=== PATIENT | female | born 1935 | race Caucasian/White ===

== ENCOUNTER 2016-10-05 19:57 | Inpatient (IN) | payer MEDICARE ==
[~2016-10-05] VITALS: Ht 152.4 cm; Wt 75.3 kg
[~2016-10-05 19:57] MED LIST: AMIO200T PO; AMLO10TA2 PO; ATEN100T PO; CEFD300C2 PO; CHOL20002 PO; CIPR500T3 PO; CLOP75TA PO; FURO20TA3 PO; HYDR-3241 PO; HYDR-3342 PO; HYDR100T25 PO; HYDR1TAB12 PO; LACT10SO28 PO; LEVO500T33 PO; LOVA20TA2 PO; METO-99 PO; METO25TA35 PO; MULT-658 PO; PANT40TA3 PO; POTA20TA6 PO; PRED10TA PO; RIVA15TA PO; RIVA20TA PO; TERA2CAP3 PO; [UNRECOGNIZED DRUG - OTHER]
[2016-10-05 21:10] LABS: HEMOGLOBIN 15.8 g/dL (11.7-16.4)
[2016-10-05 21:19] LABS: ASPARTATE AMINO TRANSFERASE 29 U/L (15-37); BLOOD UREA NITROGEN 20 mg/dL (7-18)
[2016-10-06] MEDS ORDERED: ONDANSETRON 2MG/ML, 2ML IVP PRN (00:30)
[2016-10-06] MEDS ORDERED: POLYETHYLENE GLYCOL 17 GM PACKET PO PRN (00:30)
[2016-10-06] MEDS ORDERED: ACETAMINOPHEN 325 MG TABLET PO PRN (00:30)
[2016-10-06] MEDS ORDERED: TEMPLATE NON-FORMULARY MED. (Lovastatin** 20 MG) PO SCH (00:30)
[2016-10-06] MEDS ORDERED: CEFTRIAXONE PMX 1GM/50ML 50 ML ONE (02:28)
[2016-10-06] MEDS: SODIUM CHLORIDE 0.9% 1,000 ML IV SCH ×2 (02:52→12:53)
[2016-10-06] MEDS: CEFTRIAXONE PMX 1GM/50ML 50 ML IV SCH (02:53)
[2016-10-06 05:34] LABS: HEMOGLOBIN 15.5 g/dL (11.7-16.4)
[2016-10-06 05:43] LABS: ASPARTATE AMINO TRANSFERASE 31 U/L (15-37); BLOOD UREA NITROGEN 19 mg/dL (7-18)
[2016-10-06] MEDS: CHOLECALCIFEROL 1,000 UNIT TABLET PO SCH (09:00)
[2016-10-06] MEDS: MULTIVITAMIN 1 TABLET PO SCH (09:00)
[2016-10-06] MEDS: FUROSEMIDE 20 MG TABLET PO SCH (09:00)
[2016-10-06] MEDS: AMLODIPINE 2.5 MG TABLET PO SCH (09:00)
[2016-10-06] MEDS: METOPROLOL TARTRATE 100 MG TABLET PO SCH (09:00)
[2016-10-06] MEDS ORDERED: POTASSIUM CHLORIDE 20 MEQ TAB.ER.PRT ONE ×2 (09:37→09:57)
[2016-10-06] MEDS: POTASSIUM CHLORIDE 20 MEQ TAB.ER.PRT PO SCH ×2 (09:51→10:00)
[2016-10-06 12:19] VITALS: BP 119/74
[2016-10-06 19:12] VITALS: BP 115/70
[2016-10-06] MEDS ORDERED: LOVASTATIN 40 MG TABLET PO SCH (21:00)
[2016-10-07] MEDS: CEFTRIAXONE PMX 1GM/50ML 50 ML IV SCH (01:17)
[2016-10-07 01:30] VITALS: BP 112/80
[2016-10-07 05:50] LABS: HEMOGLOBIN 15.5 g/dL (11.7-16.4)
[2016-10-07 08:00] VITALS: BP 138/87
[2016-10-07] MEDS ORDERED: POTASSIUM CHLORIDE 20 MEQ TAB.ER.PRT PO SCH (09:00)
[2016-10-07] MEDS ORDERED: SULF1TAB24 PO (09:14)
[2016-10-07] MEDS: CHOLECALCIFEROL 1,000 UNIT TABLET PO SCH (09:48)
[2016-10-07] MEDS: FUROSEMIDE 20 MG TABLET PO SCH (09:48)
[2016-10-07] MEDS: MULTIVITAMIN 1 TABLET PO SCH (09:48)
[2016-10-07] MEDS: AMLODIPINE 2.5 MG TABLET PO SCH (09:48)
[2016-10-07] MEDS: METOPROLOL TARTRATE 100 MG TABLET PO SCH (09:49)
== END 2016-10-07 11:40 | disposition home or self-care (01) | DRG 378 ==
LOC: ED 23:00 → EDIP 23:50 → 3NE 10-06 11:53 → DCLOUNGE 10-07 11:26
PROVIDERS: ATTEND Family Medicine
DX: K92.1 Melena (principal); N39.0 Urinary tract infection, site not specified; D68.69 Other thrombophilia; I38 Endocarditis, valve unspecified; D68.32 Hemorrhagic disorder due to extrinsic circulating anticoagulants; N18.3 Chronic kidney disease, stage 3 (moderate); J44.9 Chronic obstructive pulmonary disease, unspecified; Z66 Do not resuscitate; I12.9 Hypertensive chronic kidney disease with stage 1 through stage 4 chronic kidney disease, or unspecified chronic kidney disease; K80.20 Calculus of gallbladder without cholecystitis without obstruction; E78.5 Hyperlipidemia, unspecified; G89.29 Other chronic pain; I27.2 Other secondary pulmonary hypertension; M54.9 Dorsalgia, unspecified; I48.2 Chronic atrial fibrillation; K21.9 Gastro-esophageal reflux disease without esophagitis; Z79.01 Long term (current) use of anticoagulants; Z86.79 Personal history of other diseases of the circulatory system; Z87.891 Personal history of nicotine dependence; Z88.8 Allergy status to other drugs, medicaments and biological substances; T45.515A Adverse effect of anticoagulants, initial encounter
CPT/HCPCS: 36415; 80053; 81001; 85025; 85610; 85730; 87040; 87086; J0696; J7030

== ENCOUNTER 2016-11-24 12:08 | Inpatient (IN) | payer MEDICARE ==
[~2016-11-24] VITALS: Ht 154.9 cm; Wt 71.1 kg
[~2016-11-24 12:08] MED LIST changes: -CEFD300C2 PO; +CEFD300C37 PO; +SULF1TAB24 PO
[2016-11-24] MEDS ORDERED: SODIUM CHLORIDE 0.9% 1,000ML IVBOLUS ONE ×2 (12:30→15:00)
[2016-11-24 13:11] LABS: ASPARTATE AMINO TRANSFERASE 57 U/L (15-37); BLOOD UREA NITROGEN 20 mg/dL (7-18)
[2016-11-24 13:19] LABS: IS PT STATUS REG ER OR PRE ER? YES
[2016-11-24] MEDS ORDERED: CEFTRIAXONE PMX 1GM/50ML 50 ML ONE (14:47)
[2016-11-24] MEDS ORDERED: CEFTRIAXONE PMX 1GM/50ML 50 ML IV ONE (15:00)
[2016-11-24] MEDS: SODIUM CHLORIDE 0.9% 1,000 ML IV SCH ×2 (15:06→22:29)
[2016-11-24] MEDS ORDERED: ACETAMINOPHEN 325 MG TABLET PO PRN (15:30)
[2016-11-24] MEDS ORDERED: ONDANSETRON 2MG/ML, 2ML IVP PRN (15:30)
[2016-11-24 18:30] VITALS: BP 99/62
[2016-11-24] MEDS: LOVASTATIN 40 MG TABLET PO SCH (21:00)
[2016-11-24] MEDS: METOPROLOL TARTRATE 100 MG TABLET PO SCH (21:00)
[2016-11-24] MEDS: RIVAROXABAN 15 MG TABLET PO SCH (22:16)
[2016-11-25 01:07] VITALS: BP 105/72
[2016-11-25 04:40] LABS: BLOOD UREA NITROGEN 15 mg/dL (7-18)
[2016-11-25 05:26] VITALS: BP 132/93
[2016-11-25] MEDS: SODIUM CHLORIDE 0.9% 1,000 ML IV SCH (05:55)
[2016-11-25 06:33] VITALS: BP 134/78
[2016-11-25] MEDS ORDERED: PHARMACOKINETIC CONSULTATION MC ONE (09:00)
[2016-11-25] MEDS ORDERED: RIVAROXABAN 15 MG TABLET PO SCH (09:00)
[2016-11-25] MEDS ORDERED: VANCOMYCIN PER PHARMACY MC PRN (09:00)
[2016-11-25] MEDS ORDERED: CEFTRIAXONE PMX 2GM/50ML 50 ML IV SCH (09:00)
[2016-11-25] MEDS ORDERED: PHARMACOKINETIC MONITORING MC PRN (09:00)
[2016-11-25] MEDS ORDERED: AZITHROMYCIN 250 MG TABLET PO SCH (09:00)
[2016-11-25] MEDS: MULTIVITAMIN 1 TABLET PO SCH (09:26)
[2016-11-25] MEDS: POTASSIUM CHLORIDE 20 MEQ TAB.ER.PRT PO SCH (09:26)
[2016-11-25] MEDS: METOPROLOL TARTRATE 100 MG TABLET PO SCH ×2 (09:26→20:38)
[2016-11-25] MEDS: CHOLECALCIFEROL 1,000 UNIT TABLET PO SCH (09:26)
[2016-11-25] MEDS ORDERED: VANCOMYCIN 1,500 MG in SODIUM CHLORIDE 0.9% 250 ML IV ONE (09:30)
[2016-11-25 11:38] LABS: PATH.CAST-FLAG NOT PRESENT; SPERM-FLAG NOT PRESENT; SRC-FLAG NOT PRESENT; XTAL-FLAG NOT PRESENT; YLC-FLAG NOT PRESENT
[2016-11-25] MEDS: POTASSIUM CHLORIDE 20 MEQ in SODIUM CHLORIDE 0.45% 1,000 ML IV SCH (11:47)
[2016-11-25] MEDS ORDERED: APAP/CODEINE 24/2.4MG/ML ELIXIR PO PRN (12:00)
[2016-11-25] MEDS ORDERED: POTASSIUM CHLORIDE 20 MEQ TAB.ER.PRT PO ONE (12:00)
[2016-11-25 13:16] VITALS: BP 122/70
[2016-11-25] MEDS ORDERED: LORazepam 2 MG/ML, 1ML ONE (14:40)
[2016-11-25] MEDS ORDERED: LORazepam 2 MG/ML, 1ML IVPush ONE (15:00)
[2016-11-25 16:00] VITALS: BP 172/89
[2016-11-25 16:14] LABS: ABG COLLECTION SITE RIGHT BRACHIAL
[2016-11-25 16:49] LABS: BLOOD UREA NITROGEN 11 mg/dL (7-18)
[2016-11-25] MEDS: VANCOMYCIN 50 MG/ML ORAL SUSP PO SCH ×2 (17:21→21:52)
[2016-11-25] MEDS: PIPERACILLIN/TAZO/PMX 3.375GM 50 ML IV SCH ×2 (17:21→21:51)
[2016-11-25 17:22] LABS: DIFF TOTAL CELLS COUNTED 100 CELL DIFF
[2016-11-25 17:25] LABS: VERIFY COUNTS? YES
[2016-11-25 18:15] VITALS: BP 117/55
[2016-11-25] MEDS: LOVASTATIN 40 MG TABLET PO SCH (20:38)
[2016-11-25] MEDS ORDERED: LORazepam 0.5MG TABLET PO ONE (21:30)
[2016-11-26] MEDS: POTASSIUM CHLORIDE 20 MEQ in SODIUM CHLORIDE 0.45% 1,000 ML IV SCH ×2 (01:42→12:21)
[2016-11-26 03:17] VITALS: BP 129/67
[2016-11-26] MEDS: PIPERACILLIN/TAZO/PMX 3.375GM 50 ML IV SCH ×4 (05:48→19:07)
[2016-11-26] MEDS: VANCOMYCIN 50 MG/ML ORAL SUSP PO SCH ×4 (05:48→22:58)
[2016-11-26] MEDS: MULTIVITAMIN 1 TABLET PO SCH (08:12)
[2016-11-26] MEDS: METOPROLOL TARTRATE 100 MG TABLET PO SCH ×2 (08:12→21:41)
[2016-11-26] MEDS: RIVAROXABAN 15 MG TABLET PO SCH (08:13)
[2016-11-26] MEDS: CHOLECALCIFEROL 1,000 UNIT TABLET PO SCH (08:13)
[2016-11-26] MEDS: POTASSIUM CHLORIDE 20 MEQ TAB.ER.PRT PO SCH (08:13)
[2016-11-26 08:30] VITALS: BP 116/63
[2016-11-26 09:04] LABS: ASPARTATE AMINO TRANSFERASE 45 U/L (15-37); BLOOD UREA NITROGEN 10 mg/dL (7-18)
[2016-11-26 09:11] LABS: DIFF TOTAL CELLS COUNTED 100 CELL DIFF
[2016-11-26 09:12] LABS: VERIFY COUNTS? YES
[2016-11-26 09:14] LABS: ANISOCYTOSIS 1+; POLYCHROMASIA 1+
[2016-11-26] MEDS: VANCOMYCIN 1,500 MG in SODIUM CHLORIDE 0.9% 250 ML IV SCH (11:49)
[2016-11-26] MEDS: GUAIFENESIN/COD200MG-20MG/10ML LIQUID PO SCH ×3 (13:06→21:41)
[2016-11-26] MEDS ORDERED: MAGNESIUM SULFATE PMX 2GM/50ML 50 ML IV ONE (13:30)
[2016-11-26 14:30] VITALS: BP 128/81
[2016-11-26 19:21] VITALS: BP 162/89
[2016-11-26] MEDS: LOVASTATIN 40 MG TABLET PO SCH (21:41)
[2016-11-27] MEDS: PIPERACILLIN/TAZO/PMX 3.375GM 50 ML IV SCH ×4 (01:24→19:52)
[2016-11-27 02:08] VITALS: BP 102/67
[2016-11-27] MEDS: VANCOMYCIN 50 MG/ML ORAL SUSP PO SCH ×4 (04:09→22:57)
[2016-11-27] MEDS: POTASSIUM CHLORIDE 20 MEQ in SODIUM CHLORIDE 0.45% 1,000 ML IV SCH ×2 (04:09→16:00)
[2016-11-27 06:36] VITALS: BP 117/68
[2016-11-27 06:41] LABS: BLOOD UREA NITROGEN 11 mg/dL (7-18)
[2016-11-27] MEDS: RIVAROXABAN 15 MG TABLET PO SCH (09:25)
[2016-11-27] MEDS: CHOLECALCIFEROL 1,000 UNIT TABLET PO SCH (09:26)
[2016-11-27] MEDS: POTASSIUM CHLORIDE 20 MEQ TAB.ER.PRT PO SCH (09:26)
[2016-11-27] MEDS: METOPROLOL TARTRATE 100 MG TABLET PO SCH ×2 (09:26→19:52)
[2016-11-27] MEDS: GUAIFENESIN/COD200MG-20MG/10ML LIQUID PO SCH ×4 (09:26→19:52)
[2016-11-27] MEDS: MULTIVITAMIN 1 TABLET PO SCH (10:52)
[2016-11-27 13:00] VITALS: BP 100/63
[2016-11-27 18:38] VITALS: BP 119/75
[2016-11-27] MEDS: LOVASTATIN 40 MG TABLET PO SCH (19:52)
[2016-11-27] MEDS: VANCOMYCIN 1,500 MG in SODIUM CHLORIDE 0.9% 250 ML IV SCH (22:57)
[2016-11-28] MEDS: PIPERACILLIN/TAZO/PMX 3.375GM 50 ML IV SCH ×4 (01:10→19:44)
[2016-11-28 04:34] VITALS: BP 117/70
[2016-11-28] MEDS: VANCOMYCIN 50 MG/ML ORAL SUSP PO SCH ×4 (05:05→22:45)
[2016-11-28] MEDS: POTASSIUM CHLORIDE 20 MEQ in SODIUM CHLORIDE 0.45% 1,000 ML IV SCH (05:05)
[2016-11-28 06:16] LABS: BLOOD UREA NITROGEN 15 mg/dL (7-18)
[2016-11-28 07:02] VITALS: BP 163/78
[2016-11-28] MEDS: GUAIFENESIN/COD200MG-20MG/10ML LIQUID PO SCH ×4 (08:43→19:44)
[2016-11-28] MEDS: RIVAROXABAN 15 MG TABLET PO SCH (08:44)
[2016-11-28] MEDS: MULTIVITAMIN 1 TABLET PO SCH (08:44)
[2016-11-28] MEDS: METOPROLOL TARTRATE 100 MG TABLET PO SCH ×2 (08:44→19:44)
[2016-11-28] MEDS: POTASSIUM CHLORIDE 20 MEQ TAB.ER.PRT PO SCH (08:44)
[2016-11-28] MEDS: CHOLECALCIFEROL 1,000 UNIT TABLET PO SCH (08:44)
[2016-11-28] MEDS ORDERED: INSULIN REGULAR 100 UNITS/ML, 3ML VIAL SQ-INSULIN SCH (11:30)
[2016-11-28] MEDS ORDERED: INSULIN DETEMIR 100 UNITS/ML, PEN SQ-INSULIN SCH (11:30)
[2016-11-28 14:24] VITALS: BP 125/75
[2016-11-28 19:42] VITALS: BP 142/72
[2016-11-28] MEDS: LOVASTATIN 40 MG TABLET PO SCH (19:44)
[2016-11-29] MEDS: PIPERACILLIN/TAZO/PMX 3.375GM 50 ML IV SCH ×4 (00:56→22:17)
[2016-11-29 01:44] VITALS: BP 142/83
[2016-11-29] MEDS: VANCOMYCIN 50 MG/ML ORAL SUSP PO SCH ×4 (05:19→23:08)
[2016-11-29 06:10] LABS: BLOOD UREA NITROGEN 15 mg/dL (7-18)
[2016-11-29] MEDS: RIVAROXABAN 15 MG TABLET PO SCH (07:39)
[2016-11-29] MEDS: CHOLECALCIFEROL 1,000 UNIT TABLET PO SCH (07:39)
[2016-11-29] MEDS: POTASSIUM CHLORIDE 20 MEQ TAB.ER.PRT PO SCH (07:39)
[2016-11-29] MEDS: MULTIVITAMIN 1 TABLET PO SCH (07:39)
[2016-11-29] MEDS: GUAIFENESIN/COD200MG-20MG/10ML LIQUID PO SCH ×4 (07:40→23:07)
[2016-11-29] MEDS: METOPROLOL TARTRATE 100 MG TABLET PO SCH ×2 (07:40→23:07)
[2016-11-29 08:13] VITALS: BP 159/83
[2016-11-29] MEDS: VANCOMYCIN 1,500 MG in SODIUM CHLORIDE 0.9% 250 ML IV SCH (10:34)
[2016-11-29 12:38] VITALS: BP 135/81
[2016-11-29 19:57] VITALS: BP 137/81
[2016-11-29 23:00] VITALS: BP 141/57
[2016-11-29 23:04] VITALS: BP 127/68
[2016-11-29] MEDS: LOVASTATIN 40 MG TABLET PO SCH (23:07)
[2016-11-30 03:55] VITALS: BP 148/86
[2016-11-30] MEDS: VANCOMYCIN 50 MG/ML ORAL SUSP PO SCH ×4 (04:54→21:21)
[2016-11-30] MEDS: PIPERACILLIN/TAZO/PMX 3.375GM 50 ML IV SCH ×4 (04:54→21:10)
[2016-11-30 05:34] LABS: BLOOD UREA NITROGEN 11 mg/dL (7-18)
[2016-11-30] MEDS: GUAIFENESIN/COD200MG-20MG/10ML LIQUID PO SCH ×4 (06:25→21:09)
[2016-11-30 06:36] VITALS: BP 136/72
[2016-11-30 09:58] VITALS: BP 110/67
[2016-11-30] MEDS: RIVAROXABAN 15 MG TABLET PO SCH (10:00)
[2016-11-30] MEDS: CHOLECALCIFEROL 1,000 UNIT TABLET PO SCH (10:00)
[2016-11-30] MEDS: POTASSIUM CHLORIDE 20 MEQ TAB.ER.PRT PO SCH (10:00)
[2016-11-30] MEDS: METOPROLOL TARTRATE 100 MG TABLET PO SCH ×2 (10:00→21:08)
[2016-11-30] MEDS: MULTIVITAMIN 1 TABLET PO SCH (10:00)
[2016-11-30 15:04] VITALS: BP 141/78
[2016-11-30 21:01] VITALS: BP 135/80
[2016-11-30] MEDS: LOVASTATIN 40 MG TABLET PO SCH (21:09)
[2016-11-30] MEDS: VANCOMYCIN 1,500 MG in SODIUM CHLORIDE 0.9% 250 ML IV SCH (23:36)
[2016-12-01 01:57] VITALS: BP 146/85
[2016-12-01 05:37] LABS: BLOOD UREA NITROGEN 11 mg/dL (7-18)
[2016-12-01] MEDS: PIPERACILLIN/TAZO/PMX 3.375GM 50 ML IV SCH ×4 (06:08→22:09)
[2016-12-01] MEDS: VANCOMYCIN 50 MG/ML ORAL SUSP PO SCH ×4 (06:08→22:09)
[2016-12-01] MEDS: GUAIFENESIN/COD200MG-20MG/10ML LIQUID PO SCH ×4 (06:08→22:09)
[2016-12-01 08:04] VITALS: BP 128/82
[2016-12-01] MEDS: RIVAROXABAN 15 MG TABLET PO SCH (08:20)
[2016-12-01] MEDS: POTASSIUM CHLORIDE 20 MEQ TAB.ER.PRT PO SCH (08:20)
[2016-12-01] MEDS: CHOLECALCIFEROL 1,000 UNIT TABLET PO SCH (08:20)
[2016-12-01] MEDS: METOPROLOL TARTRATE 100 MG TABLET PO SCH ×2 (08:20→22:10)
[2016-12-01] MEDS: MULTIVITAMIN 1 TABLET PO SCH (08:20)
[2016-12-01] MEDS ORDERED: OMNIPAQUE 350 MG/ML, 75ML BOTTLE ONE (17:51)
[2016-12-01 20:40] VITALS: BP 165/95
[2016-12-01] MEDS: LOVASTATIN 40 MG TABLET PO SCH (22:10)
[2016-12-02 01:00] VITALS: BP 159/79
[2016-12-02] MEDS: PIPERACILLIN/TAZO/PMX 3.375GM 50 ML IV SCH ×2 (04:33→10:00)
[2016-12-02] MEDS: VANCOMYCIN 50 MG/ML ORAL SUSP PO SCH ×4 (04:33→22:29)
[2016-12-02] MEDS: GUAIFENESIN/COD200MG-20MG/10ML LIQUID PO SCH ×4 (05:21→19:55)
[2016-12-02 05:31] LABS: BLOOD UREA NITROGEN 10 mg/dL (7-18)
[2016-12-02 07:59] VITALS: BP 146/81
[2016-12-02] MEDS: FUROSEMIDE 40 MG/4 ML IV SCH (09:00)
[2016-12-02] MEDS: CHOLECALCIFEROL 1,000 UNIT TABLET PO SCH (09:00)
[2016-12-02] MEDS: MULTIVITAMIN 1 TABLET PO SCH (09:00)
[2016-12-02] MEDS: METOPROLOL TARTRATE 100 MG TABLET PO SCH ×2 (09:00→19:55)
[2016-12-02] MEDS: RIVAROXABAN 15 MG TABLET PO SCH (09:00)
[2016-12-02] MEDS: POTASSIUM CHLORIDE 20 MEQ TAB.ER.PRT PO SCH ×2 (09:00→15:34)
[2016-12-02] MEDS: VANCOMYCIN 1,500 MG in SODIUM CHLORIDE 0.9% 250 ML IV SCH (11:00)
[2016-12-02] MEDS: CEFTRIAXONE 2 GM in SODIUM CHLORIDE 0.9% 50 ML IV SCH (13:17)
[2016-12-02 14:11] VITALS: BP 138/80
[2016-12-02 18:56] VITALS: BP 139/69
[2016-12-02] MEDS: LOVASTATIN 40 MG TABLET PO SCH (19:55)
[2016-12-03 01:40] VITALS: BP 132/81
[2016-12-03] MEDS ORDERED: OMNIPAQUE 350 MG/ML, 100ML BOTTLE ONE (05:30)
[2016-12-03] MEDS: GUAIFENESIN/COD200MG-20MG/10ML LIQUID PO SCH ×4 (05:39→21:59)
[2016-12-03] MEDS: VANCOMYCIN 50 MG/ML ORAL SUSP PO SCH ×3 (05:39→18:15)
[2016-12-03 07:10] VITALS: BP 122/80
[2016-12-03] MEDS: POTASSIUM CHLORIDE 20 MEQ TAB.ER.PRT PO SCH (08:23)
[2016-12-03] MEDS: RIVAROXABAN 15 MG TABLET PO SCH (08:23)
[2016-12-03] MEDS: MULTIVITAMIN 1 TABLET PO SCH (08:23)
[2016-12-03] MEDS: METOPROLOL TARTRATE 100 MG TABLET PO SCH ×2 (08:24→22:00)
[2016-12-03] MEDS: CHOLECALCIFEROL 1,000 UNIT TABLET PO SCH (08:24)
[2016-12-03] MEDS: FUROSEMIDE 40 MG/4 ML IV SCH (08:26)
[2016-12-03] MEDS ORDERED: POTASSIUM CHLORIDE 20 MEQ TAB.ER.PRT PO SCH (09:00)
[2016-12-03] MEDS: CEFTRIAXONE 2 GM in SODIUM CHLORIDE 0.9% 50 ML IV SCH (11:32)
[2016-12-03 13:54] VITALS: BP 122/84
[2016-12-03 19:09] VITALS: BP_SYST 152; BP_SYST 173; BP_DIAS 100; BP_DIAS 99
[2016-12-03] MEDS: LOVASTATIN 40 MG TABLET PO SCH (21:59)
[2016-12-04] MEDS: VANCOMYCIN 50 MG/ML ORAL SUSP PO SCH ×4 (00:14→19:21)
[2016-12-04 02:10] VITALS: BP 158/92
[2016-12-04 05:18] LABS: BLOOD UREA NITROGEN 10 mg/dL (7-18)
[2016-12-04] MEDS: GUAIFENESIN/COD200MG-20MG/10ML LIQUID PO SCH ×4 (06:19→21:40)
[2016-12-04 07:52] VITALS: BP 123/73
[2016-12-04] MEDS: MULTIVITAMIN 1 TABLET PO SCH (08:25)
[2016-12-04] MEDS: METOPROLOL TARTRATE 100 MG TABLET PO SCH ×2 (08:25→21:39)
[2016-12-04] MEDS: FUROSEMIDE 40 MG/4 ML IV SCH (08:25)
[2016-12-04] MEDS: RIVAROXABAN 15 MG TABLET PO SCH (08:25)
[2016-12-04] MEDS: CHOLECALCIFEROL 1,000 UNIT TABLET PO SCH (08:25)
[2016-12-04] MEDS: POTASSIUM CHLORIDE 20 MEQ TAB.ER.PRT PO SCH (08:26)
[2016-12-04] MEDS: CEFTRIAXONE 2 GM in SODIUM CHLORIDE 0.9% 50 ML IV SCH (12:06)
[2016-12-04 13:20] VITALS: BP 144/81
[2016-12-04 20:15] VITALS: BP_SYST 168; BP_SYST 173; BP_DIAS 77; BP_DIAS 85
[2016-12-04] MEDS: LOVASTATIN 40 MG TABLET PO SCH (21:40)
[2016-12-05] MEDS: VANCOMYCIN 50 MG/ML ORAL SUSP PO SCH ×4 (01:23→20:37)
[2016-12-05 02:55] VITALS: BP 146/83
[2016-12-05] MEDS: GUAIFENESIN/COD200MG-20MG/10ML LIQUID PO SCH (06:00)
[2016-12-05] MEDS ORDERED: GUAIFENESIN/COD200MG-20MG/10ML LIQUID PO PRN (07:30)
[2016-12-05 08:01] VITALS: BP 130/68
[2016-12-05] MEDS: FUROSEMIDE 20 MG/2 ML IV SCH (08:29)
[2016-12-05] MEDS: POTASSIUM CHLORIDE 20 MEQ TAB.ER.PRT PO SCH (08:30)
[2016-12-05] MEDS: MULTIVITAMIN 1 TABLET PO SCH (08:30)
[2016-12-05] MEDS: METOPROLOL TARTRATE 100 MG TABLET PO SCH ×2 (08:30→20:37)
[2016-12-05] MEDS: RIVAROXABAN 15 MG TABLET PO SCH (08:31)
[2016-12-05] MEDS: CHOLECALCIFEROL 1,000 UNIT TABLET PO SCH (08:31)
[2016-12-05] MEDS: CEFTRIAXONE PMX 2GM/50ML 50 ML IV SCH ×2 (10:16→12:12)
[2016-12-05] MEDS ORDERED: CEFTRIAXONE 2 GM in SODIUM CHLORIDE 0.9% 50 ML IV SCH (11:00)
[2016-12-05 12:49] VITALS: BP 125/77
[2016-12-05 19:34] VITALS: BP 153/83
[2016-12-05] MEDS: LOVASTATIN 40 MG TABLET PO SCH (20:37)
[2016-12-06] MEDS: VANCOMYCIN 50 MG/ML ORAL SUSP PO SCH ×3 (02:48→14:28)
[2016-12-06 02:49] VITALS: BP 168/87
[2016-12-06] MEDS: FUROSEMIDE 20 MG/2 ML IV SCH (07:57)
[2016-12-06] MEDS: MULTIVITAMIN 1 TABLET PO SCH (07:58)
[2016-12-06] MEDS: POTASSIUM CHLORIDE 20 MEQ TAB.ER.PRT PO SCH (07:58)
[2016-12-06] MEDS: METOPROLOL TARTRATE 100 MG TABLET PO SCH (07:58)
[2016-12-06] MEDS: RIVAROXABAN 15 MG TABLET PO SCH (07:59)
[2016-12-06 08:23] VITALS: BP 143/72
[2016-12-06] MEDS: CHOLECALCIFEROL 1,000 UNIT TABLET PO SCH (08:55)
[2016-12-06] MEDS ORDERED: METO-99 PO (11:56)
[2016-12-06] MEDS ORDERED: VANC1VIA3 PO (11:56)
[2016-12-06] MEDS ORDERED: CEFT2FRO2 IV (11:56)
[2016-12-06] MEDS: CEFTRIAXONE PMX 2GM/50ML 50 ML IV SCH (12:28)
[2016-12-06 13:34] VITALS: BP 167/83
== END 2016-12-06 18:34 | disposition home or self-care (01) | DRG 871 ==
LOC: ED 14:53 → EDIP 14:54 → ED 15:25 → 3NW 18:28 → 5SO 11-25 16:24 → 3NE 12-01 17:42
PROVIDERS: ADMIT Hospitalist; ATTEND Hospitalist
PROC: 02HV33Z Insertion of Infusion Device into Superior Vena Cava, Percutaneous Approach (ICD-10-PCS; principal; 2016-12-03)
PROC: B5181ZA Fluoroscopy of Superior Vena Cava using Low Osmolar Contrast, Guidance (ICD-10-PCS; 2016-12-03)
PROC: B548ZZA Ultrasonography of Superior Vena Cava, Guidance (ICD-10-PCS; 2016-12-03)
DX: A41.89 Other specified sepsis (principal); J96.21 Acute and chronic respiratory failure with hypoxia; J18.9 Pneumonia, unspecified organism; I33.0 Acute and subacute infective endocarditis; E44.0 Moderate protein-calorie malnutrition; E87.4 Mixed disorder of acid-base balance; J44.0 Chronic obstructive pulmonary disease with (acute) lower respiratory infection; N17.9 Acute kidney failure, unspecified; N39.0 Urinary tract infection, site not specified; A04.7 Enterocolitis due to Clostridium difficile; B95.4 Other streptococcus as the cause of diseases classified elsewhere; E78.5 Hyperlipidemia, unspecified; E83.42 Hypomagnesemia; E87.6 Hypokalemia; F41.9 Anxiety disorder, unspecified; I08.3 Combined rheumatic disorders of mitral, aortic and tricuspid valves; G89.29 Other chronic pain; I12.9 Hypertensive chronic kidney disease with stage 1 through stage 4 chronic kidney disease, or unspecified chronic kidney disease; I25.10 Atherosclerotic heart disease of native coronary artery without angina pectoris; M54.9 Dorsalgia, unspecified; K52.9 Noninfective gastroenteritis and colitis, unspecified; I27.2 Other secondary pulmonary hypertension; I48.2 Chronic atrial fibrillation; I70.0 Atherosclerosis of aorta; K21.9 Gastro-esophageal reflux disease without esophagitis; K43.9 Ventral hernia without obstruction or gangrene; K72.90 Hepatic failure, unspecified without coma; M10.9 Gout, unspecified; N18.3 Chronic kidney disease, stage 3 (moderate); R65.20 Severe sepsis without septic shock; Z66 Do not resuscitate; Z79.01 Long term (current) use of anticoagulants; Z86.79 Personal history of other diseases of the circulatory system; Z87.11 Personal history of peptic ulcer disease; Z90.49 Acquired absence of other specified parts of digestive tract; Z87.891 Personal history of nicotine dependence; Z95.5 Presence of coronary angioplasty implant and graft; Z99.81 Dependence on supplemental oxygen; Z68.29 Body mass index [BMI] 29.0-29.9, adult
CPT/HCPCS: 36415; 36569; 36600; 70100; 70487; 71010; 74177; 76937; 77001; 80048; 80053; 80202; 81001; 82803; 83605; 83735; 83880; 84100; 84145; 84484; 85025; 85651; 86140; 87040; 87070; 87077; 87086; 87181; 87205; 87324; 87493; 93005; 93306; J0696; J1940; J2543; J3370; J3480; Q9967; C1751; J2060; J3475; J7030; J7050

== ENCOUNTER 2017-01-06 02:15 | Inpatient (IN) | payer MEDICARE ==
[~2017-01-06] VITALS: Ht 154.9 cm; Wt 70.8 kg
[~2017-01-06 02:15] MED LIST changes: +CEFT2FRO2 IV; +VANC1VIA3 PO
[2017-01-06] MEDS ORDERED: MORPHINE SULFATE 4 MG/ML, 1ML IVPush PRN ×2 (03:00→06:30)
[2017-01-06] MEDS ORDERED: SODIUM CHLORIDE 0.9% 1,000ML IVBOLUS ONE (03:00)
[2017-01-06] MEDS ORDERED: ONDANSETRON 2MG/ML, 2ML IVPush ONE (03:00)
[2017-01-06] MEDS ORDERED: ONDANSETRON 2MG/ML, 2ML ONE (03:25)
[2017-01-06] MEDS ORDERED: MORPHINE SULFATE 4 MG/ML, 1ML ONE (03:25)
[2017-01-06 03:36] LABS: ASPARTATE AMINO TRANSFERASE 34 U/L (15-37); BLOOD UREA NITROGEN 18 mg/dL (7-18)
[2017-01-06 03:40] LABS: IS PT STATUS REG ER OR PRE ER? YES
[2017-01-06] MEDS ORDERED: BACITRACIN ZINC OINT 500U/GM, 0.9 GM ONE (03:43)
[2017-01-06 03:48] LABS: PATH.CAST-FLAG NOT PRESENT; SPERM-FLAG NOT PRESENT; SRC-FLAG NOT PRESENT; XTAL-FLAG NOT PRESENT; YLC-FLAG NOT PRESENT
[2017-01-06] MEDS ORDERED: OMNIPAQUE 350 MG/ML, 100ML BOTTLE ONE (04:15)
[2017-01-06] MEDS ORDERED: CEFTRIAXONE PMX 1GM/50ML 50 ML ONE (05:00)
[2017-01-06] MEDS ORDERED: CEFTRIAXONE PMX 1GM/50ML 50 ML IV ONE (05:30)
[2017-01-06] MEDS ORDERED: SODIUM CHLORIDE 0.9% 1,000 ML IV ONE (06:09)
[2017-01-06] MEDS ORDERED: ONDANSETRON 2MG/ML, 2ML IVPush PRN ×2 (06:30→08:00)
[2017-01-06] MEDS ORDERED: CEFTRIAXONE 1,000 MG in SODIUM CHLORIDE 0.9% 50 ML IV SCH (08:00)
[2017-01-06] MEDS ORDERED: BENZOCAINE 20% SPRAY 0.5ML ONE (08:42)
[2017-01-06] MEDS ORDERED: CEFTRIAXONE PMX 1GM/50ML 50 ML IV SCH (09:18)
[2017-01-06] MEDS: PANTOPRAZOLE 40 MG IV IVPush SCH (09:57)
[2017-01-06] MEDS: METRONIDAZOLE PMX 500MG/100ML 100 ML IV SCH ×2 (09:57→16:45)
[2017-01-06] MEDS: METOPROLOL 1 MG/ML, 5ML IVPush SCH ×3 (09:57→23:49)
[2017-01-06] MEDS: SODIUM CHLORIDE 0.9% 1,000 ML IV SCH ×2 (09:57→23:50)
[2017-01-06 10:16] VITALS: BP 127/69
[2017-01-06 13:55] VITALS: BP 142/75
[2017-01-06 16:44] VITALS: BP 160/81
[2017-01-06 19:56] VITALS: BP 126/74
[2017-01-06 23:45] VITALS: BP 157/80
[2017-01-07 00:58] VITALS: BP 143/76
[2017-01-07] MEDS: METRONIDAZOLE PMX 500MG/100ML 100 ML IV SCH ×2 (02:15→09:43)
[2017-01-07] MEDS ORDERED: CEFTRIAXONE PMX 1GM/50ML 50 ML IV SCH (06:00)
[2017-01-07] MEDS: METOPROLOL 1 MG/ML, 5ML IVPush SCH ×3 (06:04→18:04)
[2017-01-07 06:05] VITALS: BP 153/92
[2017-01-07 06:10] LABS: ASPARTATE AMINO TRANSFERASE 30 U/L (15-37); BLOOD UREA NITROGEN 17 mg/dL (7-18)
[2017-01-07] MEDS: MORPHINE SULFATE 4 MG/ML, 1ML IVPush PRN ×3 (06:30→13:18)
[2017-01-07 06:38] LABS: DIFF TOTAL CELLS COUNTED 100 CELL DIFF
[2017-01-07 06:40] LABS: VERIFY COUNTS? YES
[2017-01-07 08:09] VITALS: BP 143/95
[2017-01-07] MEDS: SODIUM CHLORIDE 0.9% 1,000 ML IV SCH (09:42)
[2017-01-07] MEDS: PANTOPRAZOLE 40 MG IV IVPush SCH (09:43)
[2017-01-07 13:17] VITALS: BP 128/66
[2017-01-07 18:03] VITALS: BP 129/70
[2017-01-07 20:00] VITALS: BP 136/80
[2017-01-08 00:13] VITALS: BP 145/92
[2017-01-08] MEDS: METOPROLOL 1 MG/ML, 5ML IVPush SCH ×2 (00:13→05:28)
[2017-01-08 02:14] VITALS: BP 136/79
[2017-01-08 05:15] VITALS: BP 152/86
[2017-01-08 05:43] LABS: BLOOD UREA NITROGEN 18 mg/dL (7-18)
[2017-01-08] MEDS ORDERED: SODIUM CHLORIDE 0.9% 1,000 ML IV SCH (07:46)
[2017-01-08] MEDS: PANTOPRAZOLE 40 MG IV IVPush SCH (08:18)
[2017-01-08 08:27] VITALS: BP 157/80
[2017-01-08 12:15] VITALS: BP 165/71
[2017-01-08] MEDS: MULTIVITAMIN 1 TABLET PO SCH (12:37)
[2017-01-08] MEDS: CHOLECALCIFEROL 1,000 UNIT TABLET PO SCH (12:38)
[2017-01-08] MEDS: METOPROLOL TARTRATE 50 MG TABLET PO SCH ×2 (12:38→21:39)
[2017-01-08 19:38] VITALS: BP 149/81
[2017-01-08] MEDS ORDERED: SIMVASTATIN 10 MG TABLET PO SCH (21:00)
[2017-01-08] MEDS: MORPHINE SULFATE 4 MG/ML, 1ML IVPush PRN (23:37)
[2017-01-09 01:15] VITALS: BP 125/81
[2017-01-09 07:12] VITALS: BP 139/55
[2017-01-09] MEDS: MULTIVITAMIN 1 TABLET PO SCH (07:59)
[2017-01-09] MEDS: METOPROLOL TARTRATE 50 MG TABLET PO SCH (07:59)
[2017-01-09] MEDS: CHOLECALCIFEROL 1,000 UNIT TABLET PO SCH (07:59)
[2017-01-09] MEDS: PANTOPRAZOLE 40 MG IV IVPush SCH (07:59)
[2017-01-09 14:00] VITALS: BP 154/80
[2017-01-09 18:19] VITALS: BP 144/84
== END 2017-01-09 19:03 | disposition home or self-care (01) | DRG 393 ==
LOC: ED 03:40 → EDIP 06:09 → 5SO 09:10 → 4WST 01-08 12:18
PROVIDERS: ADMIT Internal Medicine; ATTEND Internal Medicine
DX: K43.6 Other and unspecified ventral hernia with obstruction, without gangrene (principal); N17.0 Acute kidney failure with tubular necrosis; J90 Pleural effusion, not elsewhere classified; I38 Endocarditis, valve unspecified; J98.11 Atelectasis; M54.9 Dorsalgia, unspecified; G89.29 Other chronic pain; J44.9 Chronic obstructive pulmonary disease, unspecified; K21.9 Gastro-esophageal reflux disease without esophagitis; E78.5 Hyperlipidemia, unspecified; I12.9 Hypertensive chronic kidney disease with stage 1 through stage 4 chronic kidney disease, or unspecified chronic kidney disease; N18.3 Chronic kidney disease, stage 3 (moderate); I48.2 Chronic atrial fibrillation; B95.4 Other streptococcus as the cause of diseases classified elsewhere; N30.90 Cystitis, unspecified without hematuria; I25.10 Atherosclerotic heart disease of native coronary artery without angina pectoris; I27.2 Other secondary pulmonary hypertension; E87.6 Hypokalemia; Z79.01 Long term (current) use of anticoagulants; Z88.8 Allergy status to other drugs, medicaments and biological substances; Z80.9 Family history of malignant neoplasm, unspecified; Z87.11 Personal history of peptic ulcer disease; Z86.79 Personal history of other diseases of the circulatory system; Z90.710 Acquired absence of both cervix and uterus
CPT/HCPCS: 36415; 71010; 74177; 80048; 80053; 81001; 83605; 83690; 83735; 84100; 84145; 84484; 85025; 87040; 87086; 93005; 96361; 96365; 96366; 96375; J0696; J2405; Q9967; C9113; J7030

== ENCOUNTER 2017-02-20 07:47 | Inpatient (IN) | payer MEDICARE ==
[~2017-02-20] VITALS: Ht 152.4 cm; Wt 69.6 kg
[2017-02-20] MEDS ORDERED: AMLO5TAB2 PO (08:11)
[2017-02-20] MEDS ORDERED: SODIUM CHLORIDE 0.9% 1,000 ML IV ONE (09:18)
[2017-02-20] MEDS ORDERED: SODIUM CHLORIDE FLUSH 10ML SYR IVF ONE (09:30)
[2017-02-20 09:53] LABS: HEMOGLOBIN 14.1 g/dL (11.7-16.4); WHITE BLOOD COUNT 12.6 x10^3/uL (3.4-10)
[2017-02-20 09:56] LABS: BLOOD UREA NITROGEN 14 mg/dL (7-18)
[2017-02-20 09:59] LABS: ASPARTATE AMINO TRANSFERASE 20 U/L (15-37)
[2017-02-20 10:01] LABS: PATH.CAST-FLAG NOT PRESENT; SPERM-FLAG NOT PRESENT; SRC-FLAG NOT PRESENT; XTAL-FLAG NOT PRESENT; YLC-FLAG NOT PRESENT
[2017-02-20] MEDS ORDERED: OMNIPAQUE 350 MG/ML, 100ML BOTTLE ONE (10:31)
[2017-02-20] MEDS: CEFTRIAXONE PMX 1GM/50ML 50 ML IVPB ONE ×2 (11:30→12:10)
[2017-02-20] MEDS ORDERED: METRONIDAZOLE PMX 500MG/100ML 100 ML ONE (11:41)
[2017-02-20] MEDS ORDERED: CEFTRIAXONE PMX 1GM/50ML 50 ML ONE (11:41)
[2017-02-20] MEDS: METRONIDAZOLE PMX 500MG/100ML 100 ML IV ONE (12:00)
[2017-02-20] MEDS ORDERED: SODIUM CHLORIDE 0.9% 1,000ML IVBOLUS ONE (12:00)
[2017-02-20] MEDS ORDERED: ACETAMINOPHEN 325 MG TABLET PO PRN (12:30)
[2017-02-20] MEDS ORDERED: BISACODYL 10 MG SUPP PR PRN (12:30)
[2017-02-20] MEDS: METRONIDAZOLE PMX 500MG/100ML 100 ML IV SCH ×2 (12:30→20:47)
[2017-02-20] MEDS ORDERED: ONDANSETRON 2MG/ML, 2ML IVPush PRN (12:30)
[2017-02-20] MEDS ORDERED: hydrALAzine 20 MG/ML, 1ML IVPush PRN (12:30)
[2017-02-20 13:11] VITALS: BP 122/75
[2017-02-20] MEDS: POTASSIUM CHLORIDE 20 MEQ in LACTATED RINGERS 1,000 ML IV SCH (13:31)
[2017-02-20] MEDS: CEFTAZIDIME 1,000 MG in SODIUM CHLORIDE 0.9% 50 ML IV SCH ×2 (14:29→23:05)
[2017-02-20 14:48] VITALS: BP 130/79
[2017-02-20] MEDS ORDERED: MIDAZOLAM 1 MG/ML, 5ML ONE (15:47)
[2017-02-20] MEDS ORDERED: FLUMAZENIL 0.1 MG/1 ML, 5ML ONE (15:48)
[2017-02-20] MEDS ORDERED: NALOXONE 1 MG/ML, 2ML ONE (15:48)
[2017-02-20] MEDS ORDERED: LIDOCAINE 1%, 20ML ONE (15:48)
[2017-02-20] MEDS ORDERED: FENTANYL PF 100 MCG/2ML ONE (15:48)
[2017-02-20 19:39] VITALS: BP 150/80
[2017-02-20] MEDS: morphine SULFATE 10 MG/ML, 1ML IVPush PRN ×2 (20:51→23:54)
[2017-02-20 23:30] VITALS: BP 133/79
[2017-02-21] MEDS: POTASSIUM CHLORIDE 20 MEQ in LACTATED RINGERS 1,000 ML IV SCH ×2 (02:24→14:28)
[2017-02-21 04:08] VITALS: BP 127/67
[2017-02-21] MEDS: morphine SULFATE 10 MG/ML, 1ML IVPush PRN ×2 (04:28→22:27)
[2017-02-21] MEDS: METRONIDAZOLE PMX 500MG/100ML 100 ML IV SCH ×3 (04:28→20:29)
[2017-02-21 05:00] LABS: HEMATOCRIT 43.5 % (34.6-47.8); HEMOGLOBIN 14.1 g/dL (11.7-16.4); WHITE BLOOD COUNT 11.8 x10^3/uL (3.4-10)
[2017-02-21 05:07] LABS: BLOOD UREA NITROGEN 10 mg/dL (7-18)
[2017-02-21] MEDS: CEFTAZIDIME 1,000 MG in SODIUM CHLORIDE 0.9% 50 ML IV SCH ×3 (06:24→22:27)
[2017-02-21 08:02] VITALS: BP 128/79
[2017-02-21 12:28] VITALS: BP 100/66
[2017-02-21] MEDS: POTASSIUM CHLORIDE 20 MEQ in SODIUM CHLORIDE 0.9% 1,000 ML IV SCH (15:37)
[2017-02-21 19:12] VITALS: BP 136/83
[2017-02-22] MEDS: POTASSIUM CHLORIDE 20 MEQ in SODIUM CHLORIDE 0.9% 1,000 ML IV SCH (01:36)
[2017-02-22] MEDS: morphine SULFATE 10 MG/ML, 1ML IVPush PRN (03:47)
[2017-02-22 03:51] VITALS: BP 137/68
[2017-02-22] MEDS: METRONIDAZOLE PMX 500MG/100ML 100 ML IV SCH ×3 (05:06→20:52)
[2017-02-22 05:53] LABS: HEMATOCRIT 40.2 % (34.6-47.8); HEMOGLOBIN 13.2 g/dL (11.7-16.4); WHITE BLOOD COUNT 8.8 x10^3/uL (3.4-10)
[2017-02-22 06:09] LABS: BLOOD UREA NITROGEN 8 mg/dL (7-18)
[2017-02-22] MEDS: CEFTAZIDIME 1,000 MG in SODIUM CHLORIDE 0.9% 50 ML IV SCH ×3 (06:19→22:41)
[2017-02-22] MEDS: RIVAROXABAN 15 MG TABLET PO SCH (08:10)
[2017-02-22 09:01] VITALS: BP 137/86
[2017-02-22] MEDS ORDERED: POTASSIUM CHLORIDE 10% 40 MEQ/30 ML UDC PO ONE (12:00)
[2017-02-22] MEDS: AMLODIPINE 5 MG TABLET PO SCH (12:41)
[2017-02-22 14:04] VITALS: BP 136/72
[2017-02-22 20:04] VITALS: BP 151/85
[2017-02-22] MEDS: METOPROLOL TARTRATE 50 MG TABLET PO SCH (20:52)
[2017-02-23] MEDS: morphine SULFATE 10 MG/ML, 1ML IVPush PRN (01:17)
[2017-02-23 03:22] VITALS: BP 138/87
[2017-02-23] MEDS: METRONIDAZOLE PMX 500MG/100ML 100 ML IV SCH ×2 (04:45→13:08)
[2017-02-23] MEDS: CEFTAZIDIME 1,000 MG in SODIUM CHLORIDE 0.9% 50 ML IV SCH (06:24)
[2017-02-23 07:00] VITALS: BP 144/89
[2017-02-23] MEDS: METOPROLOL TARTRATE 50 MG TABLET PO SCH (09:59)
[2017-02-23] MEDS: RIVAROXABAN 15 MG TABLET PO SCH (09:59)
[2017-02-23] MEDS: AMLODIPINE 5 MG TABLET PO SCH (09:59)
[2017-02-23 13:21] VITALS: BP 119/71
[2017-02-23] MEDS ORDERED: METR500T PO (15:42)
[2017-02-23] MEDS ORDERED: CIPR500T87 PO (15:42)
== END 2017-02-23 18:05 | disposition home or self-care (01) | DRG 853 ==
LOC: ED 09:41 → EDIP 11:32 → SUATTDRO 12:03 → 4NOR 12:35
PROVIDERS: ADMIT Internal Medicine
PROC: 0W9J3ZX Drainage of Pelvic Cavity, Percutaneous Approach, Diagnostic (ICD-10-PCS; principal; 2017-02-20)
DX: A41.9 Sepsis, unspecified organism (principal); E43 Unspecified severe protein-calorie malnutrition; J96.11 Chronic respiratory failure with hypoxia; I27.2 Other secondary pulmonary hypertension; K57.20 Diverticulitis of large intestine with perforation and abscess without bleeding; I47.1 Supraventricular tachycardia; I48.0 Paroxysmal atrial fibrillation; Z99.81 Dependence on supplemental oxygen; I48.2 Chronic atrial fibrillation; D64.9 Anemia, unspecified; E78.5 Hyperlipidemia, unspecified; E87.6 Hypokalemia; I12.9 Hypertensive chronic kidney disease with stage 1 through stage 4 chronic kidney disease, or unspecified chronic kidney disease; I73.9 Peripheral vascular disease, unspecified; J44.9 Chronic obstructive pulmonary disease, unspecified; Z60.2 Problems related to living alone; K43.2 Incisional hernia without obstruction or gangrene; N18.3 Chronic kidney disease, stage 3 (moderate); Z79.01 Long term (current) use of anticoagulants; Z86.79 Personal history of other diseases of the circulatory system; Z87.01 Personal history of pneumonia (recurrent); Z90.49 Acquired absence of other specified parts of digestive tract; Z80.42 Family history of malignant neoplasm of prostate; Z88.8 Allergy status to other drugs, medicaments and biological substances; Z82.49 Family history of ischemic heart disease and other diseases of the circulatory system
CPT/HCPCS: 36415; 49406; 74177; 75989; 80048; 80053; 81001; 83605; 83735; 85025; 85610; 87015; 87040; 87070; 87075; 87077; 87106; 87116; 87186; 87205; 87206; 96361; 96374; 96375; 99156; 99157; J0696; J0713; J2250; J3010; J3480; J3490; Q9967; C1729; J2270; J2310; J7030; J7120

== ENCOUNTER 2018-03-07 08:49 | Emergency (ER) | payer MEDICARE ==
[~2018-03-07] VITALS: Ht 154.9 cm; Wt 65.0 kg
[~2018-03-07 08:49] MED LIST changes: +AMLO5TAB2 PO; +CIPR500T87 PO; -LEVO500T33 PO; +LEVO500T47 PO; +METR500T PO
[2018-03-07 09:42] LABS: BASOPHILS # (AUTO) 0.04 x10^3/uL (0-0.1); BASOPHILS % (AUTO) 1 % (0-1); EOSINOPHILS # (AUTO) 0.05 x10^3/uL (0-0.4); EOSINOPHILS % (AUTO) 1 % (1-7); LYMPHOCYTES # (AUTO) 0.81 x10^3/uL (1-3.4); LYMPHOCYTES % (AUTO) 12 % (22-44); MD NO; MEAN CORPUSCULAR HEMOGLOBIN 30.9 pg (27.0-34.8); MEAN CORPUSCULAR HGB CONC 33.4 g/dL (32.4-35.8); MEAN CORPUSCULAR VOLUME 92.6 fL (80-100); MEAN PLATELET VOLUME 8.7 fL (7.4-10.4); MONOCYTES # (AUTO) 0.43 x10^3/uL (0.2-0.8); MONOCYTES % (AUTO) 6 % (2-9); NEUTROPHILS # (AUTO) 5.39 x10^3/uL (1.8-6.8); NEUTROPHILS % (AUTO) 80 % (42-75); PLATELET COUNT 175 x10^3/uL (130-400); RED BLOOD COUNT 5.16 x10^6/uL (3.82-5.3); RED CELL DISTRIBUTION WIDTH 14.7 % (9.6-15.2)
[2018-03-07 09:54] LABS: ALBUMIN 3.2 g/dL (3.4-5.0); ANION GAP 7 mmol/L (5-15); CALCIUM 8.7 mg/dL (8.5-10.1); CHLORIDE 109 mmol/L (98-107)
[2018-03-07 09:55] LABS: CREATININE 1.17 mg/dL (0.55-1.02)
[2018-03-07 10:59] VITALS: BP 128/74
== END 2018-03-07 11:02 | disposition home or self-care (01) ==
LOC: ED 10:16
DX: R19.8 Other specified symptoms and signs involving the digestive system and abdomen (principal); J44.9 Chronic obstructive pulmonary disease, unspecified; I48.91 Unspecified atrial fibrillation; I10 Essential (primary) hypertension; Z87.891 Personal history of nicotine dependence
CPT/HCPCS: 36415; 80048; 82040; 85025; 99284

== ENCOUNTER → 2018-04-10 | Outpatient (CLI) | payer MEDICARE ==
[~2018-04-10] MED LIST changes: -AMLO10TA2 PO; +AMLO10TA6 PO; -AMLO5TAB2 PO; +AMLO5TAB7 PO; -CHOL20002 PO; +CHOL200052 PO; +REGADENOSON 0.4 MG/5 ML SYRINGE ONE
== END | disposition home or self-care (01) ==
LOC: CFH 10:26
PROVIDERS: ATTEND Internal Medicine Cardiovascular Disease
DX: I08.1 Rheumatic disorders of both mitral and tricuspid valves (principal); I27.20 Pulmonary hypertension, unspecified; I48.2 Chronic atrial fibrillation; I10 Essential (primary) hypertension; E78.5 Hyperlipidemia, unspecified; Z87.891 Personal history of nicotine dependence
CPT/HCPCS: 78452; 93017; 93306; A9502; J2785

== ENCOUNTER → 2018-09-24 | Outpatient (CLI) | payer MEDICARE ==
[~2018-09-24] MED LIST changes: +AMLO-150 PO; -AMLO10TA6 PO; +AMLO10TA8 PO; -AMLO5TAB7 PO; -HYDR1TAB12 PO; +HYDR1TAB13 PO; -REGADENOSON 0.4 MG/5 ML SYRINGE ONE
== END | disposition home or self-care (01) ==
LOC: CVU 07:00
PROVIDERS: ATTEND Registered Nurse
DX: I08.3 Combined rheumatic disorders of mitral, aortic and tricuspid valves (principal); I11.9 Hypertensive heart disease without heart failure; I27.29 Other secondary pulmonary hypertension; I48.2 Chronic atrial fibrillation; E78.5 Hyperlipidemia, unspecified; J90 Pleural effusion, not elsewhere classified; J43.2 Centrilobular emphysema; J98.11 Atelectasis; R06.01 Orthopnea; Z99.81 Dependence on supplemental oxygen; Z79.01 Long term (current) use of anticoagulants; Z87.891 Personal history of nicotine dependence
CPT/HCPCS: 71250; 93306

== ENCOUNTER 2018-10-12 12:30 | Emergency (ER) | payer MEDICARE ==
[~2018-10-12] VITALS: Ht 154.9 cm; Wt 65.0 kg
[2018-10-12] MEDS ORDERED: SODIUM CHLORIDE FLUSH 10ML SYR IVF ONE (13:00)
[2018-10-12 13:16] LABS: BASOPHILS # (AUTO) 0.03 x10^3/uL (0-0.1); BASOPHILS % (AUTO) 1 % (0-1); EOSINOPHILS # (AUTO) 0.07 x10^3/uL (0-0.4); EOSINOPHILS % (AUTO) 1 % (1-7); LYMPHOCYTES # (AUTO) 0.78 x10^3/uL (1-3.4); LYMPHOCYTES % (AUTO) 11 % (22-44); MD NO; MEAN CORPUSCULAR HEMOGLOBIN 31.7 pg (27.0-34.8); MEAN CORPUSCULAR HGB CONC 33.9 g/dL (32.4-35.8); MEAN CORPUSCULAR VOLUME 93.4 fL (80-100); MEAN PLATELET VOLUME 8.4 fL (7.4-10.4); MONOCYTES # (AUTO) 0.61 x10^3/uL (0.2-0.8); MONOCYTES % (AUTO) 9 % (2-9); NEUTROPHILS # (AUTO) 5.37 x10^3/uL (1.8-6.8); NEUTROPHILS % (AUTO) 78 % (42-75); PLATELET COUNT 195 x10^3/uL (130-400); RED BLOOD COUNT 4.22 x10^6/uL (3.82-5.3); RED CELL DISTRIBUTION WIDTH 15.4 % (9.6-15.2)
[2018-10-12 13:25] LABS: ALANINE AMINOTRANSFERASE 18 U/L (12-78); ALBUMIN 3.4 g/dL (3.4-5.0); ANION GAP 5 mmol/L (5-15); CALCIUM 8.9 mg/dL (8.5-10.1); CHLORIDE 111 mmol/L (98-107)
[2018-10-12 13:28] LABS: ALKALINE PHOSPHATASE 134 U/L (45-117); BILIRUBIN,TOTAL 0.5 mg/dL (0.2-1.0); TOTAL PROTEIN 7.8 g/dL (6.4-8.2)
[2018-10-12] MEDS ORDERED: POTA99TA24 PO (14:38)
[2018-10-12] MEDS ORDERED: SPIR25TA5 PO (14:38)
[2018-10-12] MEDS ORDERED: AMPICILLIN/SULBACTAM 3 GM in SODIUM CHLORIDE 0.9% 100 ML IV ONE (15:00)
[2018-10-12] MEDS ORDERED: METRONIDAZOLE PMX 500MG/100ML 100 ML IV ONE (15:00)
[2018-10-12] MEDS ORDERED: HYDROcodone/APAP 5/325 TABLET PO ONE (15:00)
[2018-10-12] MEDS ORDERED: METRONIDAZOLE PMX 500MG/100ML 100 ML ONE (15:13)
[2018-10-12] MEDS ORDERED: HYDROcodone/APAP 5/325 TABLET ONE (15:14)
[2018-10-12 16:34] LABS: MICROSCOPIC AUTO
[2018-10-12 16:39] LABS: CULTURE INDICATED? NO
[2018-10-12 17:28] LABS: CLOSTRIDIUM DIFFICILE ANTIGEN NEGATIVE; CLOSTRIDIUM DIFFICILE TOXIN NEGATIVE (Negative)
[2018-10-12 18:11] VITALS: BP 115/61
== END 2018-10-12 18:13 | disposition home or self-care (01) ==
LOC: ED 17:43
DX: K57.32 Diverticulitis of large intestine without perforation or abscess without bleeding (principal)
CPT/HCPCS: 36415; 74177; 80053; 81001; 85025; 87324; 89055; 93005; 96365; 96366; 96368; 99284; J0295

== ENCOUNTER 2018-10-16 04:05 | Inpatient (IN) | payer MEDICARE ==
[~2018-10-16] VITALS: Ht 154.9 cm; Wt 62.6 kg
[~2018-10-16 04:05] MED LIST changes: +POTA99TA24 PO; +SPIR25TA5 PO
[2018-10-16] MEDS ORDERED: MORPHINE SULFATE 4 MG/ML, 1ML IVPush PRN ×2 (05:00)
[2018-10-16] MEDS ORDERED: ONDANSETRON 2MG/ML, 2ML IVPush ONE ×2 (05:00)
[2018-10-16] MEDS ORDERED: SODIUM CHLORIDE FLUSH 10ML SYR IVF ONE ×2 (05:00)
[2018-10-16] MEDS ORDERED: ONDANSETRON 2MG/ML, 2ML ONE (05:20)
[2018-10-16] MEDS ORDERED: MORPHINE SULFATE 4 MG/ML, 1ML ONE ×3 (05:20→09:54)
--- NOTE | 2018-10-16 05:25 | NUR ---
ct pending lab/creatine
--- NOTE | 2018-10-16 05:39 | NUR ---
RDIOLOGY DELAY-IV BEING STARTED
[2018-10-16 05:52] LABS: ALANINE AMINOTRANSFERASE 20 U/L (12-78); ALBUMIN 3.2 g/dL (3.4-5.0); ANION GAP 8 mmol/L (5-15); CALCIUM 8.8 mg/dL (8.5-10.1); CHLORIDE 109 mmol/L (98-107); CREATININE 1.24 mg/dL (0.55-1.02)
[2018-10-16 05:54] LABS: ALKALINE PHOSPHATASE 120 U/L (45-117); BILIRUBIN,TOTAL 0.7 mg/dL (0.2-1.0); TOTAL PROTEIN 7.6 g/dL (6.4-8.2)
[2018-10-16 06:02] LABS: BASOPHILS # (AUTO) 0.04 x10^3/uL (0-0.1); BASOPHILS % (AUTO) 0 % (0-1); EOSINOPHILS # (AUTO) 0.04 x10^3/uL (0-0.4); EOSINOPHILS % (AUTO) 0 % (1-7); LYMPHOCYTES # (AUTO) 0.62 x10^3/uL (1-3.4); LYMPHOCYTES % (AUTO) 6 % (22-44); MD NO; MEAN CORPUSCULAR HEMOGLOBIN 30.6 pg (27.0-34.8); MEAN CORPUSCULAR HGB CONC 32.8 g/dL (32.4-35.8); MEAN CORPUSCULAR VOLUME 93.3 fL (80-100); MEAN PLATELET VOLUME 8.9 fL (7.4-10.4); MONOCYTES # (AUTO) 0.85 x10^3/uL (0.2-0.8); MONOCYTES % (AUTO) 9 % (2-9); NEUTROPHILS # (AUTO) 8.43 x10^3/uL (1.8-6.8); NEUTROPHILS % (AUTO) 84 % (42-75); PLATELET COUNT 235 x10^3/uL (130-400); RED BLOOD COUNT 4.39 x10^6/uL (3.82-5.3); RED CELL DISTRIBUTION WIDTH 15.5 % (9.6-15.2)
[2018-10-16] MEDS ORDERED: OMNIPAQUE 350 MG/ML, 100ML BOTTLE ONE (07:01)
--- NOTE | 2018-10-16 07:05 | NUR ---
I AM ASSUMING CARE OF THIS PT FROM PAOLA (KRISTIE) AT THIS TIME. SBAR REPORT WAS EXCHANGED AT THE BEDSIDE.
--- NOTE | 2018-10-16 08:10 | NUR ---
PT SLEEPING SONOROUSLY ON AN E.R. GURNEY. SHE HAS REQUSTED TO REMAIN ON GURNEY IN LIEU OF A HOSPITAL BED FOR COMFORT. VS ARE STABLE, AN WDL. I WILL CONTINUE TO MONITOR AND TREAT ORDERED WELL PRN WHILE AWAITING A ROOM ASSIGNMENT FOR ADMISSION.
[2018-10-16] MEDS ORDERED: METRONIDAZOLE PMX 500MG/100ML 100 ML IV ONE (08:30)
[2018-10-16] MEDS ORDERED: CEFTRIAXONE PMX 1GM/50ML 50 ML IV ONE (08:30)
--- NOTE | 2018-10-16 08:46 | NUR ---
HOSPITAL BED REFUSED FOR COMFORT WHILE AWAITING A ROOM ASSIGNMENT FOR ADMISSION.
[2018-10-16] MEDS ORDERED: CEFTRIAXONE PMX 1GM/50ML 50 ML ONE (08:52)
[2018-10-16] MEDS ORDERED: METRONIDAZOLE PMX 500MG/100ML 100 ML ONE (08:52)
--- NOTE | 2018-10-16 09:24 | NUR ---
pt ambulated to and from the restroom with a steady gait. o2 desaturation w ambulation. return to baseline upon resting w supplemental o2 mask.
[2018-10-16] MEDS ORDERED: MORPHINE SULFATE 4 MG/ML, 1ML IVPush ONE (10:00)
--- NOTE | 2018-10-16 11:22 | NUR ---
pt sleeping sonorously on an e.r. gurney while awaiting a room assignment for admission. vs are stable, and wdl. i will continue to monitor and treat as ordered, as well as prn while awaiting a room assignment for admission.
--- NOTE | 2018-10-16 11:33 | NUR ---
verbal sbar report was exchanged w nithya (reginald) on the floor for admissin. we will begin to prepare for transport at this time.
[2018-10-16] MEDS ORDERED: METO-99 PO (12:51)
[2018-10-16] MEDS ORDERED: TIOT4MIS3 INH (12:51)
[2018-10-16] MEDS ORDERED: ACETAMINOPHEN 325 MG TABLET PO PRN (13:30)
[2018-10-16] MEDS ORDERED: morphine SULFATE 10 MG/ML, 1ML IVPush PRN (13:30)
[2018-10-16 13:50] VITALS: BP 132/76
[2018-10-16 14:14] LABS: INTERNATIONAL NORMALIZED RATIO 1.41 (0.93-1.1); PROTHROMBIN TIME 14.6 Seconds (9.6-11.5)
[2018-10-16 14:20] LABS: C-REACTIVE PROTEIN, QUANT 2.3 mg/dL (0.02-0.49)
[2018-10-16 14:30] LABS: HCT (SEDRATE) 40.3 % (34.6-47.8)
[2018-10-16] MEDS: ALBUTEROL/IPRATROPIUM 2.5MG/0.5MG, 3 ML NPPB SCH ×2 (14:55→19:29)
[2018-10-16] MEDS ORDERED: ALBUTEROL SULFATE 2.5 MG/3 ML NPPB SCH (15:00)
[2018-10-16 16:18] LABS: MICROSCOPIC AUTO
[2018-10-16 16:20] LABS: CULTURE INDICATED? YES
[2018-10-16] MEDS: METRONIDAZOLE PMX 500MG/100ML 100 ML IV SCH (16:54)
[2018-10-16 19:40] VITALS: BP 104/65
[2018-10-16] MEDS ORDERED: CEFTRIAXONE PMX 1GM/50ML 50 ML IV SCH (20:30)
[2018-10-16] MEDS: LOVASTATIN 20 MG TABLET PO SCH (20:55)
[2018-10-16] MEDS: SPIRONOLACTONE 25 MG TABLET PO SCH (20:55)
[2018-10-16] MEDS: RIVAROXABAN 15 MG TABLET PO SCH (21:49)
[2018-10-17] VITALS (10 sets, daily range): BP systolic 105–145; BP diastolic 55–77
[2018-10-17] MEDS: METRONIDAZOLE PMX 500MG/100ML 100 ML IV SCH ×3 (01:13→20:14)
[2018-10-17] MEDS: HYDROcodone/APAP 5/325 TABLET PO PRN ×2 (01:20→15:06)
[2018-10-17] MEDS: ALBUTEROL/IPRATROPIUM 2.5MG/0.5MG, 3 ML NPPB SCH ×4 (02:16→20:41)
[2018-10-17 03:14] LABS: BASOPHILS # (AUTO) 0.03 x10^3/uL (0-0.1); BASOPHILS % (AUTO) 0 % (0-1); EOSINOPHILS # (AUTO) 0.04 x10^3/uL (0-0.4); EOSINOPHILS % (AUTO) 1 % (1-7); LYMPHOCYTES # (AUTO) 0.84 x10^3/uL (1-3.4); LYMPHOCYTES % (AUTO) 10 % (22-44); MD NO; MEAN CORPUSCULAR HEMOGLOBIN 29.7 pg (27.0-34.8); MEAN CORPUSCULAR HGB CONC 31.7 g/dL (32.4-35.8); MEAN CORPUSCULAR VOLUME 93.8 fL (80-100); MEAN PLATELET VOLUME 8.4 fL (7.4-10.4); MONOCYTES # (AUTO) 0.83 x10^3/uL (0.2-0.8); MONOCYTES % (AUTO) 10 % (2-9); NEUTROPHILS # (AUTO) 6.51 x10^3/uL (1.8-6.8); NEUTROPHILS % (AUTO) 79 % (42-75); PLATELET COUNT 207 x10^3/uL (130-400); RED BLOOD COUNT 3.87 x10^6/uL (3.82-5.3); RED CELL DISTRIBUTION WIDTH 15.6 % (9.6-15.2)
[2018-10-17 03:16] LABS: ALANINE AMINOTRANSFERASE 16 U/L (12-78); ALBUMIN 2.8 g/dL (3.4-5.0); ANION GAP 9 mmol/L (5-15); CHLORIDE 114 mmol/L (98-107); CREATININE 1.16 mg/dL (0.55-1.02)
[2018-10-17 03:18] LABS: ALKALINE PHOSPHATASE 100 U/L (45-117); BILIRUBIN,TOTAL 0.4 mg/dL (0.2-1.0); TOTAL PROTEIN 6.6 g/dL (6.4-8.2)
[2018-10-17] MEDS ORDERED: POTASSIUM CHLORIDE 20 MEQ TAB.ER.PRT PO ONE (04:30)
[2018-10-17] MEDS ORDERED: FUROSEMIDE 40 MG/4 ML IV ONE (04:30)
[2018-10-17] MEDS ORDERED: OMNIPAQUE 350 MG/ML, 100ML BOTTLE ONE (06:15)
[2018-10-17] MEDS: CHOLECALCIFEROL 1,000 UNIT TABLET PO SCH (08:18)
[2018-10-17] MEDS: MULTIVITAMIN 1 TABLET PO SCH (08:18)
[2018-10-17] MEDS: METOPROLOL TARTRATE 100 MG TABLET PO SCH (08:18)
[2018-10-17] MEDS: AMLODIPINE 5 MG TABLET PO SCH (08:18)
[2018-10-17] MEDS: SPIRONOLACTONE 25 MG TABLET PO SCH ×2 (08:19→20:14)
[2018-10-17] MEDS: CEFTRIAXONE PMX 1GM/50ML 50 ML IV SCH (08:23)
[2018-10-17] MEDS ORDERED: RIVAROXABAN 15 MG TABLET PO SCH (09:00)
[2018-10-17] MEDS ORDERED: TEMPLATE NON-FORMULARY MED. (Tiotropium Br/Olodaterol HCl (Stiolto Respimat Inhal Spray) 2 INH SCH (09:00)
[2018-10-17] MEDS: DOXYCYCLINE 100 MG in DEXTROSE 5% 250 ML IV SCH ×2 (11:48→14:37)
[2018-10-17] MEDS: POTASSIUM CHLORIDE 20 MEQ TAB.ER.PRT PO SCH ×2 (11:48→17:18)
[2018-10-17 12:51] LABS: CLOSTRIDIUM DIFFICILE ANTIGEN NEGATIVE; CLOSTRIDIUM DIFFICILE TOXIN NEGATIVE (Negative)
[2018-10-17 13:27] LABS: STOOL FOR LEUKOCYTES NONE SEEN (NEGATIVE)
[2018-10-17 13:30] LABS: OCCULT BLOOD POSITIVE (NEGATIVE)
[2018-10-17] MEDS ORDERED: FUROSEMIDE 20 MG/2 ML IV ONE (17:30)
[2018-10-17] MEDS: LOVASTATIN 20 MG TABLET PO SCH (20:14)
[2018-10-17] MEDS: RIVAROXABAN 15 MG TABLET PO SCH (20:14)
[2018-10-18] MEDS: DOXYCYCLINE 100 MG in DEXTROSE 5% 250 ML IV SCH ×2 (02:34→14:50)
[2018-10-18 02:58] VITALS: BP 121/75
[2018-10-18] MEDS: ALBUTEROL/IPRATROPIUM 2.5MG/0.5MG, 3 ML NPPB SCH ×5 (03:00→22:00)
[2018-10-18] MEDS: METRONIDAZOLE PMX 500MG/100ML 100 ML IV SCH ×3 (04:38→19:58)
[2018-10-18 05:56] LABS: BASOPHILS % (AUTO) 0 % (0-1); EOSINOPHILS # (AUTO) 0.02 x10^3/uL (0-0.4); EOSINOPHILS % (AUTO) 0 % (1-7); LYMPHOCYTES # (AUTO) 0.42 x10^3/uL (1-3.4); LYMPHOCYTES % (AUTO) 5 % (22-44); MD NO; MEAN CORPUSCULAR HEMOGLOBIN 31.1 pg (27.0-34.8); MEAN CORPUSCULAR HGB CONC 33.3 g/dL (32.4-35.8); MEAN CORPUSCULAR VOLUME 93.4 fL (80-100); MEAN PLATELET VOLUME 8.5 fL (7.4-10.4); MONOCYTES # (AUTO) 0.55 x10^3/uL (0.2-0.8); MONOCYTES % (AUTO) 7 % (2-9); NEUTROPHILS # (AUTO) 7.02 x10^3/uL (1.8-6.8); NEUTROPHILS % (AUTO) 88 % (42-75); PLATELET COUNT 216 x10^3/uL (130-400); RED BLOOD COUNT 3.77 x10^6/uL (3.82-5.3); RED CELL DISTRIBUTION WIDTH 15.9 % (9.6-15.2)
[2018-10-18 06:11] LABS: ALANINE AMINOTRANSFERASE 14 U/L (12-78); ALBUMIN 2.9 g/dL (3.4-5.0); ANION GAP 5 mmol/L (5-15); CALCIUM 8.4 mg/dL (8.5-10.1); CHLORIDE 116 mmol/L (98-107); CREATININE 1.38 mg/dL (0.55-1.02)
[2018-10-18 06:13] LABS: ALKALINE PHOSPHATASE 108 U/L (45-117); BILIRUBIN,TOTAL 0.4 mg/dL (0.2-1.0); TOTAL PROTEIN 6.6 g/dL (6.4-8.2)
[2018-10-18 08:04] VITALS: BP 125/73
[2018-10-18] MEDS: CHOLECALCIFEROL 1,000 UNIT TABLET PO SCH (09:26)
[2018-10-18] MEDS: SPIRONOLACTONE 25 MG TABLET PO SCH ×2 (09:26→19:58)
[2018-10-18] MEDS: MULTIVITAMIN 1 TABLET PO SCH (09:26)
[2018-10-18] MEDS: CEFTRIAXONE PMX 1GM/50ML 50 ML IV SCH (09:26)
[2018-10-18] MEDS: METOPROLOL TARTRATE 100 MG TABLET PO SCH (09:26)
[2018-10-18] MEDS: AMLODIPINE 5 MG TABLET PO SCH (09:27)
[2018-10-18 11:37] LABS: OCCULT BLOOD NEGATIVE (NEGATIVE)
[2018-10-18 12:30] VITALS: BP 105/49
[2018-10-18] MEDS ORDERED: POTASSIUM CHLORIDE 20 MEQ TAB.ER.PRT PO ONE (13:00)
[2018-10-18 13:17] VITALS: BP 127/78
[2018-10-18] MEDS: LACTOBACILLUS CHEW TABLET PO SCH ×3 (14:50→19:57)
[2018-10-18 18:46] VITALS: BP 108/63
[2018-10-18] MEDS: LOVASTATIN 20 MG TABLET PO SCH (19:58)
[2018-10-18] MEDS: RIVAROXABAN 15 MG TABLET PO SCH (19:58)
[2018-10-19 00:15] VITALS: BP 104/62
[2018-10-19] MEDS: DOXYCYCLINE 100 MG in DEXTROSE 5% 250 ML IV SCH (02:26)
[2018-10-19] MEDS: ALBUTEROL/IPRATROPIUM 2.5MG/0.5MG, 3 ML NPPB SCH ×4 (03:00→21:05)
[2018-10-19] MEDS: METRONIDAZOLE PMX 500MG/100ML 100 ML IV SCH ×3 (04:07→20:01)
[2018-10-19] MEDS: LACTOBACILLUS CHEW TABLET PO SCH ×4 (05:47→20:03)
[2018-10-19 06:35] LABS: BASOPHILS # (AUTO) 0.03 x10^3/uL (0-0.1); BASOPHILS % (AUTO) 0 % (0-1); EOSINOPHILS # (AUTO) 0.04 x10^3/uL (0-0.4); EOSINOPHILS % (AUTO) 1 % (1-7); LYMPHOCYTES # (AUTO) 0.74 x10^3/uL (1-3.4); LYMPHOCYTES % (AUTO) 8 % (22-44); MD NO; MEAN CORPUSCULAR HGB CONC 33.3 g/dL (32.4-35.8); MEAN CORPUSCULAR VOLUME 93.2 fL (80-100); MEAN PLATELET VOLUME 8.6 fL (7.4-10.4); MONOCYTES # (AUTO) 0.66 x10^3/uL (0.2-0.8); MONOCYTES % (AUTO) 8 % (2-9); NEUTROPHILS # (AUTO) 7.34 x10^3/uL (1.8-6.8); NEUTROPHILS % (AUTO) 83 % (42-75); PLATELET COUNT 236 x10^3/uL (130-400); RED BLOOD COUNT 3.81 x10^6/uL (3.82-5.3); RED CELL DISTRIBUTION WIDTH 15.7 % (9.6-15.2)
[2018-10-19 06:43] LABS: ANION GAP 9 mmol/L (5-15); CALCIUM 8.6 mg/dL (8.5-10.1); CHLORIDE 113 mmol/L (98-107)
[2018-10-19 06:46] LABS: CREATININE 1.54 mg/dL (0.55-1.02)
[2018-10-19] MEDS: CEFTRIAXONE PMX 1GM/50ML 50 ML IV SCH (07:39)
[2018-10-19 07:42] VITALS: BP 110/68
[2018-10-19] MEDS ORDERED: METO50TA82 PO (09:16)
[2018-10-19] MEDS ORDERED: POTASSIUM CHLORIDE 20 MEQ TAB.ER.PRT PO SCH (09:30)
[2018-10-19] MEDS ORDERED: LACTATED RINGERS 500 ML IV SCH (09:30)
[2018-10-19] MEDS: SPIRONOLACTONE 25 MG TABLET PO SCH ×2 (10:04→20:02)
[2018-10-19] MEDS: AMLODIPINE 5 MG TABLET PO SCH (10:06)
[2018-10-19] MEDS: MULTIVITAMIN 1 TABLET PO SCH (10:08)
[2018-10-19] MEDS: CHOLECALCIFEROL 1,000 UNIT TABLET PO SCH (10:09)
[2018-10-19] MEDS: HYDROcodone/APAP 5/325 TABLET PO PRN ×2 (10:11→16:42)
[2018-10-19] MEDS: METOPROLOL TARTRATE 100 MG TABLET PO SCH ×2 (10:12→20:03)
[2018-10-19 10:28] LABS: OCCULT BLOOD POSITIVE (NEGATIVE)
[2018-10-19] MEDS: SIMETHICONE DROPS 40 MG/0.6 ML BOTTLE PO SCH ×3 (12:16→20:04)
[2018-10-19] MEDS: POTASSIUM CHLORIDE 10% 40 MEQ/30 ML UDC PO SCH ×2 (13:29→20:05)
[2018-10-19 14:08] LABS: ANION GAP 10 mmol/L (5-15); CALCIUM 8.6 mg/dL (8.5-10.1); CHLORIDE 111 mmol/L (98-107); CREATININE 1.65 mg/dL (0.55-1.02)
[2018-10-19 14:20] VITALS: BP 112/65
[2018-10-19] MEDS ORDERED: SODIUM BICARBONATE 8.4% 150 MEQ in DEXTROSE 5% 1,000 ML IV SCH (15:00)
[2018-10-19] MEDS ORDERED: PHARMACY MAY ADJ FOR RENAL FX MC PRN (15:30)
[2018-10-19] MEDS ORDERED: SODIUM BICARBONATE IV SCH (16:00)
[2018-10-19] MEDS ORDERED: DEXTROSE 5% IV SCH (16:00)
[2018-10-19 16:42] LABS: CRYPTOSPORIDIUM ANTIGEN Negative (Negative)
[2018-10-19] MEDS: LOVASTATIN 20 MG TABLET PO SCH (20:04)
[2018-10-19] MEDS: RIVAROXABAN 15 MG TABLET PO SCH (20:05)
[2018-10-19] MEDS: DOXYCYCLINE 100MG TABLET PO SCH (20:05)
[2018-10-19 20:37] VITALS: BP 106/69
[2018-10-20 00:42] VITALS: BP 114/70
[2018-10-20] MEDS: ALBUTEROL/IPRATROPIUM 2.5MG/0.5MG, 3 ML NPPB SCH ×4 (02:45→20:25)
[2018-10-20] MEDS: METRONIDAZOLE PMX 500MG/100ML 100 ML IV SCH ×3 (03:37→20:13)
[2018-10-20 04:01] LABS: MICROSCOPIC INDICATED
[2018-10-20 05:37] LABS: BASOPHILS # (AUTO) 0.03 x10^3/uL (0-0.1); BASOPHILS % (AUTO) 0 % (0-1); EOSINOPHILS % (AUTO) 1 % (1-7); LYMPHOCYTES # (AUTO) 0.78 x10^3/uL (1-3.4); LYMPHOCYTES % (AUTO) 9 % (22-44); MD NO; MEAN CORPUSCULAR HEMOGLOBIN 31.1 pg (27.0-34.8); MEAN CORPUSCULAR HGB CONC 33.8 g/dL (32.4-35.8); MEAN CORPUSCULAR VOLUME 92.2 fL (80-100); MEAN PLATELET VOLUME 8.4 fL (7.4-10.4); MONOCYTES # (AUTO) 0.74 x10^3/uL (0.2-0.8); MONOCYTES % (AUTO) 9 % (2-9); NEUTROPHILS % (AUTO) 81 % (42-75); PLATELET COUNT 235 x10^3/uL (130-400); RED BLOOD COUNT 3.86 x10^6/uL (3.82-5.3); RED CELL DISTRIBUTION WIDTH 15.6 % (9.6-15.2)
[2018-10-20 05:48] LABS: ANION GAP 7 mmol/L (5-15); CALCIUM 8.4 mg/dL (8.5-10.1); CHLORIDE 112 mmol/L (98-107); CREATININE 1.56 mg/dL (0.55-1.02)
[2018-10-20 07:24] VITALS: BP 119/76
[2018-10-20] MEDS: CEFTRIAXONE PMX 1GM/50ML 50 ML IV SCH (07:57)
[2018-10-20] MEDS: LACTOBACILLUS CHEW TABLET PO SCH ×4 (07:58→20:16)
[2018-10-20] MEDS: MULTIVITAMIN 1 TABLET PO SCH (07:58)
[2018-10-20] MEDS: AMLODIPINE 5 MG TABLET PO SCH (07:58)
[2018-10-20] MEDS: SPIRONOLACTONE 25 MG TABLET PO SCH ×2 (07:59→21:59)
[2018-10-20] MEDS: POTASSIUM CHLORIDE 10% 40 MEQ/30 ML UDC PO SCH ×2 (07:59→20:16)
[2018-10-20] MEDS: METOPROLOL TARTRATE 100 MG TABLET PO SCH ×2 (07:59→22:00)
[2018-10-20] MEDS: CHOLECALCIFEROL 1,000 UNIT TABLET PO SCH (07:59)
[2018-10-20] MEDS: DOXYCYCLINE 100MG TABLET PO SCH ×2 (07:59→20:16)
[2018-10-20 09:36] LABS: OCCULT BLOOD NEGATIVE (NEGATIVE)
[2018-10-20 14:16] VITALS: BP 134/74
[2018-10-20] MEDS ORDERED: SODIUM BICARBONATE IV SCH (15:00)
[2018-10-20] MEDS ORDERED: DEXTROSE 5% IV SCH (15:00)
[2018-10-20 18:58] VITALS: BP 123/64
[2018-10-20] MEDS: HYDROcodone/APAP 5/325 TABLET PO PRN (19:17)
[2018-10-20] MEDS: LOVASTATIN 20 MG TABLET PO SCH (20:16)
[2018-10-20] MEDS: RIVAROXABAN 15 MG TABLET PO SCH (20:16)
[2018-10-21 02:05] VITALS: BP 122/71
[2018-10-21] MEDS: HYDROcodone/APAP 5/325 TABLET PO PRN ×2 (02:11→21:25)
[2018-10-21] MEDS: ALBUTEROL/IPRATROPIUM 2.5MG/0.5MG, 3 ML NPPB SCH ×4 (03:10→21:00)
[2018-10-21] MEDS: METRONIDAZOLE PMX 500MG/100ML 100 ML IV SCH ×3 (04:31→21:13)
[2018-10-21 05:42] LABS: BASOPHILS # (AUTO) 0.02 x10^3/uL (0-0.1); BASOPHILS % (AUTO) 0 % (0-1); EOSINOPHILS # (AUTO) 0.07 x10^3/uL (0-0.4); EOSINOPHILS % (AUTO) 1 % (1-7); LYMPHOCYTES # (AUTO) 0.69 x10^3/uL (1-3.4); LYMPHOCYTES % (AUTO) 8 % (22-44); MD NO; MEAN CORPUSCULAR HEMOGLOBIN 31.2 pg (27.0-34.8); MEAN CORPUSCULAR HGB CONC 33.7 g/dL (32.4-35.8); MEAN CORPUSCULAR VOLUME 92.4 fL (80-100); MEAN PLATELET VOLUME 8.6 fL (7.4-10.4); MONOCYTES # (AUTO) 0.73 x10^3/uL (0.2-0.8); MONOCYTES % (AUTO) 9 % (2-9); NEUTROPHILS # (AUTO) 7.07 x10^3/uL (1.8-6.8); NEUTROPHILS % (AUTO) 83 % (42-75); PLATELET COUNT 257 x10^3/uL (130-400); RED BLOOD COUNT 4.19 x10^6/uL (3.82-5.3); RED CELL DISTRIBUTION WIDTH 15.8 % (9.6-15.2)
[2018-10-21] MEDS: LACTOBACILLUS CHEW TABLET PO SCH ×4 (05:47→21:24)
[2018-10-21 05:52] LABS: ANION GAP 8 mmol/L (5-15); CALCIUM 8.7 mg/dL (8.5-10.1); CHLORIDE 113 mmol/L (98-107)
[2018-10-21 05:53] LABS: CREATININE 1.31 mg/dL (0.55-1.02)
[2018-10-21 07:17] VITALS: BP 130/76
[2018-10-21] MEDS: MULTIVITAMIN 1 TABLET PO SCH (08:19)
[2018-10-21] MEDS: POTASSIUM CHLORIDE 10% 40 MEQ/30 ML UDC PO SCH ×2 (08:19→21:23)
[2018-10-21] MEDS: SPIRONOLACTONE 25 MG TABLET PO SCH ×2 (08:19→21:24)
[2018-10-21] MEDS: DOXYCYCLINE 100MG TABLET PO SCH ×2 (08:19→21:24)
[2018-10-21] MEDS: AMLODIPINE 5 MG TABLET PO SCH (08:19)
[2018-10-21] MEDS: METOPROLOL TARTRATE 100 MG TABLET PO SCH ×2 (08:19→21:24)
[2018-10-21] MEDS: CHOLECALCIFEROL 1,000 UNIT TABLET PO SCH (08:19)
[2018-10-21] MEDS: CEFTRIAXONE PMX 1GM/50ML 50 ML IV SCH (08:20)
[2018-10-21] MEDS: ONDANSETRON 2MG/ML, 2ML IVPush PRN ×2 (13:14→21:40)
[2018-10-21 14:00] VITALS: BP 128/68
[2018-10-21 21:06] VITALS: BP 124/73
[2018-10-21] MEDS: LOVASTATIN 20 MG TABLET PO SCH (21:24)
[2018-10-21] MEDS: RIVAROXABAN 15 MG TABLET PO SCH (21:25)
[2018-10-22 00:39] VITALS: BP 121/73
[2018-10-22] MEDS: ALBUTEROL/IPRATROPIUM 2.5MG/0.5MG, 3 ML NPPB SCH ×4 (02:34→21:00)
[2018-10-22] MEDS: METRONIDAZOLE PMX 500MG/100ML 100 ML IV SCH ×3 (05:14→20:30)
[2018-10-22] MEDS: LACTOBACILLUS CHEW TABLET PO SCH ×4 (05:14→20:31)
[2018-10-22 05:42] LABS: BASOPHILS # (AUTO) 0.01 x10^3/uL (0-0.1); BASOPHILS % (AUTO) 0 % (0-1); EOSINOPHILS % (AUTO) 1 % (1-7); LYMPHOCYTES # (AUTO) 0.85 x10^3/uL (1-3.4); LYMPHOCYTES % (AUTO) 10 % (22-44); MD NO; MEAN CORPUSCULAR HEMOGLOBIN 31.3 pg (27.0-34.8); MEAN CORPUSCULAR HGB CONC 33.6 g/dL (32.4-35.8); MEAN CORPUSCULAR VOLUME 93.1 fL (80-100); MEAN PLATELET VOLUME 8.8 fL (7.4-10.4); MONOCYTES # (AUTO) 0.77 x10^3/uL (0.2-0.8); MONOCYTES % (AUTO) 9 % (2-9); NEUTROPHILS # (AUTO) 7.16 x10^3/uL (1.8-6.8); NEUTROPHILS % (AUTO) 81 % (42-75); PLATELET COUNT 269 x10^3/uL (130-400); RED BLOOD COUNT 4.14 x10^6/uL (3.82-5.3); RED CELL DISTRIBUTION WIDTH 15.9 % (9.6-15.2)
[2018-10-22 05:50] LABS: ANION GAP 5 mmol/L (5-15); CALCIUM 8.7 mg/dL (8.5-10.1); CHLORIDE 117 mmol/L (98-107); CREATININE 1.25 mg/dL (0.55-1.02)
[2018-10-22 06:28] VITALS: BP 139/74
[2018-10-22] MEDS: CEFTRIAXONE PMX 1GM/50ML 50 ML IV SCH (07:55)
[2018-10-22] MEDS: POTASSIUM CHLORIDE 10% 40 MEQ/30 ML UDC PO SCH ×2 (07:55→20:33)
[2018-10-22] MEDS: MULTIVITAMIN 1 TABLET PO SCH (07:55)
[2018-10-22] MEDS: CHOLECALCIFEROL 1,000 UNIT TABLET PO SCH (07:56)
[2018-10-22] MEDS: AMLODIPINE 5 MG TABLET PO SCH (07:56)
[2018-10-22] MEDS: DOXYCYCLINE 100MG TABLET PO SCH ×2 (09:46→20:31)
[2018-10-22] MEDS: SPIRONOLACTONE 25 MG TABLET PO SCH ×2 (09:46→20:31)
[2018-10-22] MEDS: METOPROLOL TARTRATE 100 MG TABLET PO SCH ×2 (09:46→20:32)
[2018-10-22 13:10] VITALS: BP 117/59
[2018-10-22 20:00] VITALS: BP 129/78
[2018-10-22] MEDS: LOVASTATIN 20 MG TABLET PO SCH (20:31)
[2018-10-22] MEDS: RIVAROXABAN 15 MG TABLET PO SCH (20:31)
[2018-10-22] MEDS: DRONABINOL 2.5 MG CAPSULE PO SCH (20:33)
[2018-10-22] MEDS: HYDROcodone/APAP 5/325 TABLET PO PRN (23:03)
[2018-10-23 00:05] VITALS: BP 117/65
[2018-10-23] MEDS: ALBUTEROL/IPRATROPIUM 2.5MG/0.5MG, 3 ML NPPB SCH ×4 (03:00→19:40)
[2018-10-23] MEDS: LACTOBACILLUS CHEW TABLET PO SCH ×4 (05:07→20:37)
[2018-10-23 05:30] LABS: PH, VENOUS 7.348 pH (7.320-7.420)
[2018-10-23 05:39] LABS: BASOPHILS # (AUTO) 0.04 x10^3/uL (0-0.1); BASOPHILS % (AUTO) 0 % (0-1); EOSINOPHILS # (AUTO) 0.07 x10^3/uL (0-0.4); EOSINOPHILS % (AUTO) 1 % (1-7); LYMPHOCYTES # (AUTO) 0.98 x10^3/uL (1-3.4); LYMPHOCYTES % (AUTO) 9 % (22-44); MD NO; MEAN CORPUSCULAR HEMOGLOBIN 30.5 pg (27.0-34.8); MEAN CORPUSCULAR HGB CONC 32.6 g/dL (32.4-35.8); MEAN CORPUSCULAR VOLUME 93.6 fL (80-100); MEAN PLATELET VOLUME 8.5 fL (7.4-10.4); MONOCYTES # (AUTO) 0.82 x10^3/uL (0.2-0.8); MONOCYTES % (AUTO) 8 % (2-9); NEUTROPHILS # (AUTO) 8.58 x10^3/uL (1.8-6.8); NEUTROPHILS % (AUTO) 82 % (42-75); PLATELET COUNT 296 x10^3/uL (130-400); RED BLOOD COUNT 4.53 x10^6/uL (3.82-5.3); RED CELL DISTRIBUTION WIDTH 16.4 % (9.6-15.2)
[2018-10-23 05:48] LABS: ANION GAP 7 mmol/L (5-15); CALCIUM 9.6 mg/dL (8.5-10.1); CHLORIDE 116 mmol/L (98-107); CREATININE 1.12 mg/dL (0.55-1.02)
[2018-10-23] MEDS: METRONIDAZOLE PMX 500MG/100ML 100 ML IV SCH (06:21)
[2018-10-23 06:26] VITALS: BP 124/54
[2018-10-23] MEDS: AMLODIPINE 5 MG TABLET PO SCH (08:16)
[2018-10-23] MEDS: POTASSIUM CHLORIDE 10% 40 MEQ/30 ML UDC PO SCH ×3 (08:16→20:38)
[2018-10-23] MEDS: DRONABINOL 2.5 MG CAPSULE PO SCH ×2 (08:16→20:38)
[2018-10-23] MEDS: CHOLECALCIFEROL 1,000 UNIT TABLET PO SCH (08:16)
[2018-10-23] MEDS: MULTIVITAMIN 1 TABLET PO SCH (08:16)
[2018-10-23] MEDS: CEFTRIAXONE PMX 1GM/50ML 50 ML IV SCH (08:16)
[2018-10-23] MEDS: DOXYCYCLINE 100MG TABLET PO SCH ×2 (08:16→08:48)
[2018-10-23] MEDS: SPIRONOLACTONE 25 MG TABLET PO SCH ×3 (08:17→20:44)
[2018-10-23] MEDS: METOPROLOL TARTRATE 100 MG TABLET PO SCH ×3 (08:17→20:37)
[2018-10-23] MEDS: methylPREDNISolone SOD SUCC 40 MG/ML IVPush SCH ×2 (12:10→23:10)
[2018-10-23] MEDS: MEROPENEM 1 GM in SODIUM CHLORIDE 0.9% 100 ML IV SCH ×2 (12:10→23:10)
[2018-10-23 14:21] VITALS: BP 120/59
[2018-10-23] MEDS ORDERED: AMIODARONE 200 MG TABLET PO ONE (16:30)
[2018-10-23 18:22] VITALS: BP 121/72
[2018-10-23] MEDS: LOVASTATIN 20 MG TABLET PO SCH (20:36)
[2018-10-23] MEDS: AMIODARONE 200 MG TABLET PO SCH (20:37)
[2018-10-23] MEDS: RIVAROXABAN 15 MG TABLET PO SCH (20:44)
[2018-10-23] MEDS: HYDROcodone/APAP 5/325 TABLET PO PRN (20:50)
[2018-10-23 23:43] VITALS: BP 126/75
[2018-10-24 02:00] VITALS: BP 113/59
[2018-10-24] MEDS: ALBUTEROL/IPRATROPIUM 2.5MG/0.5MG, 3 ML NPPB SCH ×4 (03:00→20:43)
[2018-10-24 07:49] LABS: BASOPHILS # (AUTO) 0.01 x10^3/uL (0-0.1); BASOPHILS % (AUTO) 0 % (0-1); EOSINOPHILS % (AUTO) 0 % (1-7); LYMPHOCYTES # (AUTO) 0.45 x10^3/uL (1-3.4); LYMPHOCYTES % (AUTO) 4 % (22-44); MD NO; MEAN CORPUSCULAR HEMOGLOBIN 30.4 pg (27.0-34.8); MEAN CORPUSCULAR HGB CONC 32.6 g/dL (32.4-35.8); MEAN CORPUSCULAR VOLUME 93.2 fL (80-100); MEAN PLATELET VOLUME 8.7 fL (7.4-10.4); MONOCYTES # (AUTO) 0.26 x10^3/uL (0.2-0.8); MONOCYTES % (AUTO) 2 % (2-9); NEUTROPHILS # (AUTO) 11.44 x10^3/uL (1.8-6.8); NEUTROPHILS % (AUTO) 94 % (42-75); PLATELET COUNT 311 x10^3/uL (130-400); RED BLOOD COUNT 4.28 x10^6/uL (3.82-5.3); RED CELL DISTRIBUTION WIDTH 16.4 % (9.6-15.2)
[2018-10-24 08:01] LABS: ANION GAP 9 mmol/L (5-15); CALCIUM 9.1 mg/dL (8.5-10.1); CHLORIDE 115 mmol/L (98-107); CREATININE 1.18 mg/dL (0.55-1.02)
[2018-10-24 08:11] VITALS: BP 133/80
[2018-10-24] MEDS ORDERED: DIGOXIN 0.125 MG TABLET PO SCH (09:00)
[2018-10-24] MEDS: CHOLECALCIFEROL 1,000 UNIT TABLET PO SCH (09:24)
[2018-10-24] MEDS: LACTOBACILLUS CHEW TABLET PO SCH ×4 (09:24→20:07)
[2018-10-24] MEDS: MULTIVITAMIN 1 TABLET PO SCH (09:24)
[2018-10-24] MEDS: DRONABINOL 2.5 MG CAPSULE PO SCH ×2 (09:24→20:07)
[2018-10-24] MEDS: POTASSIUM CHLORIDE 10% 40 MEQ/30 ML UDC PO SCH ×2 (09:24→20:07)
[2018-10-24] MEDS: AMIODARONE 200 MG TABLET PO SCH ×2 (09:25→20:07)
[2018-10-24] MEDS: SPIRONOLACTONE 25 MG TABLET PO SCH ×2 (09:25→20:03)
[2018-10-24] MEDS: AMLODIPINE 5 MG TABLET PO SCH (09:26)
[2018-10-24] MEDS: METOPROLOL TARTRATE 100 MG TABLET PO SCH ×2 (09:30→20:05)
[2018-10-24] MEDS: MEROPENEM 1 GM in SODIUM CHLORIDE 0.9% 100 ML IV SCH ×2 (10:24→22:26)
[2018-10-24] MEDS: methylPREDNISolone SOD SUCC 40 MG/ML IVPush SCH ×2 (10:25→22:27)
[2018-10-24 13:12] VITALS: BP 119/70
[2018-10-24 20:00] VITALS: BP 119/70
[2018-10-24] MEDS: HYDROcodone/APAP 5/325 TABLET PO PRN (20:06)
[2018-10-24] MEDS: RIVAROXABAN 15 MG TABLET PO SCH (20:06)
[2018-10-24] MEDS: LOVASTATIN 20 MG TABLET PO SCH (20:07)
[2018-10-25 01:26] VITALS: BP 102/65
[2018-10-25] MEDS: ALBUTEROL/IPRATROPIUM 2.5MG/0.5MG, 3 ML NPPB SCH ×4 (03:00→21:10)
[2018-10-25] MEDS: HYDROcodone/APAP 5/325 TABLET PO PRN ×2 (04:11→20:33)
[2018-10-25] MEDS: LACTOBACILLUS CHEW TABLET PO SCH ×4 (05:31→20:34)
[2018-10-25 05:45] LABS: ANION GAP 7 mmol/L (5-15); CHLORIDE 116 mmol/L (98-107); CREATININE 1.26 mg/dL (0.55-1.02)
[2018-10-25 05:54] LABS: MEAN CORPUSCULAR HEMOGLOBIN 30.6 pg (27.0-34.8); MEAN CORPUSCULAR HGB CONC 32.7 g/dL (32.4-35.8); MEAN CORPUSCULAR VOLUME 93.4 fL (80-100); MEAN PLATELET VOLUME 8.5 fL (7.4-10.4); PLATELET COUNT 315 x10^3/uL (130-400); RED BLOOD COUNT 4.16 x10^6/uL (3.82-5.3); RED CELL DISTRIBUTION WIDTH 16.1 % (9.6-15.2)
[2018-10-25 06:44] LABS: BASOPHILS # (AUTO) 0.01 x10^3/uL (0-0.1); BASOPHILS % (AUTO) 0 % (0-1); EOSINOPHILS % (AUTO) 0 % (1-7); LYMPHOCYTES # (AUTO) 0.47 x10^3/uL (1-3.4); LYMPHOCYTES % (AUTO) 3 % (22-44); MD SCAN; MONOCYTES # (AUTO) 0.39 x10^3/uL (0.2-0.8); MONOCYTES % (AUTO) 3 % (2-9); NEUTROPHILS # (AUTO) 15.09 x10^3/uL (1.8-6.8); NEUTROPHILS % (AUTO) 95 % (42-75)
[2018-10-25 07:16] VITALS: BP 115/67
[2018-10-25] MEDS: SPIRONOLACTONE 25 MG TABLET PO SCH ×2 (08:57→20:31)
[2018-10-25] MEDS: AMLODIPINE 5 MG TABLET PO SCH (08:57)
[2018-10-25] MEDS: POTASSIUM CHLORIDE 10% 40 MEQ/30 ML UDC PO SCH (08:57)
[2018-10-25] MEDS: DRONABINOL 2.5 MG CAPSULE PO SCH ×2 (08:57→20:34)
[2018-10-25] MEDS: MULTIVITAMIN 1 TABLET PO SCH (08:57)
[2018-10-25] MEDS: CHOLECALCIFEROL 1,000 UNIT TABLET PO SCH (08:57)
[2018-10-25] MEDS: METOPROLOL TARTRATE 100 MG TABLET PO SCH ×2 (08:57→20:30)
[2018-10-25] MEDS: AMIODARONE 200 MG TABLET PO SCH ×2 (08:58→20:32)
[2018-10-25] MEDS: MEROPENEM 1 GM in SODIUM CHLORIDE 0.9% 100 ML IV SCH ×2 (11:28→22:37)
[2018-10-25] MEDS: methylPREDNISolone SOD SUCC 40 MG/ML IVPush SCH ×2 (11:28→22:37)
[2018-10-25 13:44] VITALS: BP 106/62
[2018-10-25 19:12] VITALS: BP 112/69
[2018-10-25] MEDS: POTASSIUM CHLORIDE 20 MEQ TAB.ER.PRT PO SCH (20:34)
[2018-10-25] MEDS: RIVAROXABAN 15 MG TABLET PO SCH (20:34)
[2018-10-25] MEDS: LOVASTATIN 20 MG TABLET PO SCH (20:34)
[2018-10-25] MEDS ORDERED: CALCIUM CARBONATE 500 MG TAB.CHEW PO PRN (23:00)
[2018-10-26 01:22] VITALS: BP 116/63
[2018-10-26] MEDS: ALBUTEROL/IPRATROPIUM 2.5MG/0.5MG, 3 ML NPPB SCH ×2 (02:37→07:42)
[2018-10-26] MEDS: LACTOBACILLUS CHEW TABLET PO SCH ×4 (05:41→20:24)
[2018-10-26 08:00] VITALS: BP 114/68
[2018-10-26] MEDS: POTASSIUM CHLORIDE 20 MEQ TAB.ER.PRT PO SCH ×2 (08:22→20:24)
[2018-10-26] MEDS: AMLODIPINE 5 MG TABLET PO SCH (08:22)
[2018-10-26] MEDS: METOPROLOL TARTRATE 100 MG TABLET PO SCH ×2 (08:22→20:24)
[2018-10-26] MEDS: DRONABINOL 2.5 MG CAPSULE PO SCH ×2 (08:23→20:26)
[2018-10-26] MEDS: CHOLECALCIFEROL 1,000 UNIT TABLET PO SCH (08:23)
[2018-10-26] MEDS: AMIODARONE 200 MG TABLET PO SCH ×2 (08:23→20:24)
[2018-10-26] MEDS: SPIRONOLACTONE 25 MG TABLET PO SCH ×2 (08:23→20:23)
[2018-10-26] MEDS: MULTIVITAMIN 1 TABLET PO SCH (08:29)
[2018-10-26] MEDS: ONDANSETRON 2MG/ML, 2ML IVPush PRN ×2 (08:43→14:42)
[2018-10-26] MEDS: MEROPENEM 1 GM in SODIUM CHLORIDE 0.9% 100 ML IV SCH ×2 (12:01→22:10)
[2018-10-26] MEDS: methylPREDNISolone SOD SUCC 40 MG/ML IVPush SCH ×2 (12:01→22:10)
[2018-10-26] MEDS ORDERED: ALBUTEROL/IPRATROPIUM 2.5MG/0.5MG, 3 ML NPPB PRN (14:30)
[2018-10-26 14:55] VITALS: BP 103/65
[2018-10-26 19:05] VITALS: BP 128/68
[2018-10-26] MEDS: RIVAROXABAN 15 MG TABLET PO SCH (20:24)
[2018-10-26] MEDS: LOVASTATIN 20 MG TABLET PO SCH (20:24)
[2018-10-26] MEDS: HYDROcodone/APAP 5/325 TABLET PO PRN (20:33)
[2018-10-27 00:12] VITALS: BP 130/61
[2018-10-27 05:16] LABS: BASOPHILS % (AUTO) 0 % (0-1); EOSINOPHILS % (AUTO) 0 % (1-7); LYMPHOCYTES # (AUTO) 0.33 x10^3/uL (1-3.4); LYMPHOCYTES % (AUTO) 3 % (22-44); MD NO; MEAN CORPUSCULAR HEMOGLOBIN 30.8 pg (27.0-34.8); MEAN CORPUSCULAR VOLUME 93.5 fL (80-100); MEAN PLATELET VOLUME 8.8 fL (7.4-10.4); MONOCYTES # (AUTO) 0.56 x10^3/uL (0.2-0.8); MONOCYTES % (AUTO) 4 % (2-9); NEUTROPHILS # (AUTO) 12.09 x10^3/uL (1.8-6.8); NEUTROPHILS % (AUTO) 93 % (42-75); PLATELET COUNT 282 x10^3/uL (130-400); RED BLOOD COUNT 4.37 x10^6/uL (3.82-5.3); RED CELL DISTRIBUTION WIDTH 16.2 % (9.6-15.2)
[2018-10-27 05:28] LABS: CHLORIDE 113 mmol/L (98-107)
[2018-10-27] MEDS: LACTOBACILLUS CHEW TABLET PO SCH ×4 (05:31→20:04)
[2018-10-27 05:37] LABS: ANION GAP 7 mmol/L (5-15); CALCIUM 9.3 mg/dL (8.5-10.1); CREATININE 1.09 mg/dL (0.55-1.02)
[2018-10-27 08:37] VITALS: BP 131/70
[2018-10-27] MEDS: METOPROLOL TARTRATE 100 MG TABLET PO SCH ×2 (10:12→20:05)
[2018-10-27] MEDS: AMIODARONE 200 MG TABLET PO SCH ×2 (10:13→20:04)
[2018-10-27] MEDS: AMLODIPINE 5 MG TABLET PO SCH (10:21)
[2018-10-27] MEDS: POTASSIUM CHLORIDE 20 MEQ TAB.ER.PRT PO SCH ×2 (10:21→20:03)
[2018-10-27] MEDS: MULTIVITAMIN 1 TABLET PO SCH (10:23)
[2018-10-27] MEDS: DRONABINOL 2.5 MG CAPSULE PO SCH ×2 (10:23→20:04)
[2018-10-27] MEDS: CHOLECALCIFEROL 1,000 UNIT TABLET PO SCH (10:24)
[2018-10-27] MEDS: SPIRONOLACTONE 25 MG TABLET PO SCH ×2 (10:24→20:05)
[2018-10-27] MEDS: methylPREDNISolone SOD SUCC 40 MG/ML IVPush SCH ×2 (10:34→22:54)
[2018-10-27] MEDS: MEROPENEM 1 GM in SODIUM CHLORIDE 0.9% 100 ML IV SCH ×2 (11:18→22:54)
[2018-10-27 14:50] VITALS: BP 118/63
[2018-10-27 18:32] VITALS: BP 122/64
[2018-10-27] MEDS: HYDROcodone/APAP 5/325 TABLET PO PRN (20:04)
[2018-10-27] MEDS: RIVAROXABAN 15 MG TABLET PO SCH (20:04)
[2018-10-27] MEDS: LOVASTATIN 20 MG TABLET PO SCH (20:05)
[2018-10-27] MEDS: NYSTATIN 500,000 UNITS/5 ML UDC PO SCH (22:57)
[2018-10-28 02:18] VITALS: BP 114/62
[2018-10-28 05:07] LABS: MEAN CORPUSCULAR HEMOGLOBIN 30.8 pg (27.0-34.8); MEAN CORPUSCULAR HGB CONC 32.8 g/dL (32.4-35.8); MEAN CORPUSCULAR VOLUME 93.9 fL (80-100); MEAN PLATELET VOLUME 9.1 fL (7.4-10.4); PLATELET COUNT 251 x10^3/uL (130-400); RED BLOOD COUNT 4.49 x10^6/uL (3.82-5.3); RED CELL DISTRIBUTION WIDTH 16.7 % (9.6-15.2)
[2018-10-28 05:16] LABS: ANION GAP 6 mmol/L (5-15); CALCIUM 8.8 mg/dL (8.5-10.1); CHLORIDE 113 mmol/L (98-107)
[2018-10-28] MEDS: LACTOBACILLUS CHEW TABLET PO SCH ×4 (05:26→20:12)
[2018-10-28] MEDS: NYSTATIN 500,000 UNITS/5 ML UDC PO SCH ×4 (05:26→20:12)
[2018-10-28 06:10] LABS: BASOPHILS % (AUTO) 0 % (0-1); EOSINOPHILS % (AUTO) 0 % (1-7); LYMPHOCYTES # (AUTO) 0.26 x10^3/uL (1-3.4); LYMPHOCYTES % (AUTO) 2 % (22-44); MD SCAN; MONOCYTES # (AUTO) 0.39 x10^3/uL (0.2-0.8); MONOCYTES % (AUTO) 3 % (2-9); NEUTROPHILS # (AUTO) 11.25 x10^3/uL (1.8-6.8); NEUTROPHILS % (AUTO) 95 % (42-75)
[2018-10-28 08:12] VITALS: BP 110/69
[2018-10-28] MEDS: DRONABINOL 2.5 MG CAPSULE PO SCH ×2 (09:00→20:12)
[2018-10-28] MEDS: AMLODIPINE 5 MG TABLET PO SCH (09:00)
[2018-10-28] MEDS: CHOLECALCIFEROL 1,000 UNIT TABLET PO SCH (09:00)
[2018-10-28] MEDS: POTASSIUM CHLORIDE 20 MEQ TAB.ER.PRT PO SCH ×2 (09:00→20:15)
[2018-10-28] MEDS: AMIODARONE 200 MG TABLET PO SCH ×2 (09:00→20:12)
[2018-10-28] MEDS: METOPROLOL TARTRATE 100 MG TABLET PO SCH ×2 (09:00→20:11)
[2018-10-28] MEDS: SPIRONOLACTONE 25 MG TABLET PO SCH ×2 (09:00→20:10)
[2018-10-28] MEDS: MULTIVITAMIN 1 TABLET PO SCH (09:00)
[2018-10-28] MEDS: PANTOPROZOLE 40MG TABLET PO SCH (12:26)
[2018-10-28] MEDS: MEROPENEM 1 GM in SODIUM CHLORIDE 0.9% 100 ML IV SCH ×2 (12:26→22:31)
[2018-10-28] MEDS: methylPREDNISolone SOD SUCC 40 MG/ML IVPush SCH ×2 (12:26→22:32)
[2018-10-28 12:32] VITALS: BP 116/73
[2018-10-28 19:21] VITALS: BP 118/64
[2018-10-28] MEDS: RIVAROXABAN 15 MG TABLET PO SCH (20:12)
[2018-10-28] MEDS: LOVASTATIN 20 MG TABLET PO SCH (20:12)
[2018-10-28] MEDS: HYDROcodone/APAP 5/325 TABLET PO PRN (20:15)
[2018-10-29 01:55] VITALS: BP 131/68
[2018-10-29 04:51] LABS: MEAN CORPUSCULAR HEMOGLOBIN 30.6 pg (27.0-34.8); MEAN CORPUSCULAR HGB CONC 32.8 g/dL (32.4-35.8); MEAN CORPUSCULAR VOLUME 93.4 fL (80-100); MEAN PLATELET VOLUME 8.9 fL (7.4-10.4); PLATELET COUNT 255 x10^3/uL (130-400); RED BLOOD COUNT 4.64 x10^6/uL (3.82-5.3); RED CELL DISTRIBUTION WIDTH 15.7 % (9.6-15.2)
[2018-10-29 04:52] LABS: CHLORIDE 113 mmol/L (98-107)
[2018-10-29 04:53] LABS: ANION GAP 6 mmol/L (5-15); CALCIUM 8.5 mg/dL (8.5-10.1); CREATININE 1.04 mg/dL (0.55-1.02)
[2018-10-29] MEDS: LACTOBACILLUS CHEW TABLET PO SCH ×2 (05:26→12:27)
[2018-10-29] MEDS: NYSTATIN 500,000 UNITS/5 ML UDC PO SCH (05:27)
[2018-10-29] MEDS: PANTOPROZOLE 40MG TABLET PO SCH (05:39)
[2018-10-29 05:45] LABS: BASOPHILS % (AUTO) 0 % (0-1); EOSINOPHILS % (AUTO) 0 % (1-7); LYMPHOCYTES # (AUTO) 0.26 x10^3/uL (1-3.4); LYMPHOCYTES % (AUTO) 2 % (22-44); MD SCAN; MONOCYTES # (AUTO) 0.12 x10^3/uL (0.2-0.8); MONOCYTES % (AUTO) 1 % (2-9); NEUTROPHILS # (AUTO) 13.96 x10^3/uL (1.8-6.8); NEUTROPHILS % (AUTO) 97 % (42-75)
[2018-10-29 08:16] VITALS: BP 102/79
[2018-10-29] MEDS: POTASSIUM CHLORIDE 20 MEQ TAB.ER.PRT PO SCH (09:00)
[2018-10-29] MEDS ORDERED: ACID1TAB7 PO (12:14)
[2018-10-29] MEDS ORDERED: POTA20TA6 PO (12:14)
[2018-10-29] MEDS ORDERED: AMIO200T42 PO (12:14)
[2018-10-29] MEDS ORDERED: DRON2.5C2 PO (12:14)
[2018-10-29] MEDS ORDERED: IPRA3AMP30 NPPB (12:14)
[2018-10-29] MEDS ORDERED: CALC200T24 PO (12:14)
[2018-10-29] MEDS ORDERED: HYDR-3237 PO (12:14)
[2018-10-29] MEDS ORDERED: ACET325T14 PO (12:14)
[2018-10-29] MEDS ORDERED: PANT40TA5 PO (12:14)
[2018-10-29] MEDS ORDERED: NYST1000 PO (12:18)
[2018-10-29] MEDS: SPIRONOLACTONE 25 MG TABLET PO SCH (12:26)
[2018-10-29] MEDS: MULTIVITAMIN 1 TABLET PO SCH (12:26)
[2018-10-29] MEDS: methylPREDNISolone SOD SUCC 40 MG/ML IVPush SCH (12:26)
[2018-10-29] MEDS: DRONABINOL 2.5 MG CAPSULE PO SCH (12:27)
[2018-10-29] MEDS: CHOLECALCIFEROL 1,000 UNIT TABLET PO SCH (12:27)
[2018-10-29] MEDS: AMIODARONE 200 MG TABLET PO SCH (12:27)
[2018-10-29] MEDS: METOPROLOL TARTRATE 100 MG TABLET PO SCH (12:27)
[2018-10-29] MEDS: MEROPENEM 1 GM in SODIUM CHLORIDE 0.9% 100 ML IV SCH (12:28)
[2018-10-29] MEDS: AMLODIPINE 5 MG TABLET PO SCH (12:28)
[2018-10-29 12:41] VITALS: BP 111/69
== END 2018-10-29 16:06 | DRG 177 ==
LOC: ED 07:03 → EDIP 08:07 → 3NE 11:57 → 4EST 10-17 16:35
PROVIDERS: ADMIT Internal Medicine; ATTEND Internal Medicine
DX: J69.0 Pneumonitis due to inhalation of food and vomit (principal); J96.21 Acute and chronic respiratory failure with hypoxia; I50.33 Acute on chronic diastolic (congestive) heart failure; N17.0 Acute kidney failure with tubular necrosis; A09 Infectious gastroenteritis and colitis, unspecified; E44.0 Moderate protein-calorie malnutrition; D68.59 Other primary thrombophilia; E87.2 Acidosis; I13.0 Hypertensive heart and chronic kidney disease with heart failure and stage 1 through stage 4 chronic kidney disease, or unspecified chronic kidney disease; J98.11 Atelectasis; K56.0 Paralytic ileus; K57.92 Diverticulitis of intestine, part unspecified, without perforation or abscess without bleeding; J44.1 Chronic obstructive pulmonary disease with (acute) exacerbation; J44.0 Chronic obstructive pulmonary disease with (acute) lower respiratory infection; Z66 Do not resuscitate; I27.29 Other secondary pulmonary hypertension; E78.5 Hyperlipidemia, unspecified; E87.6 Hypokalemia; I08.1 Rheumatic disorders of both mitral and tricuspid valves; G89.29 Other chronic pain; I25.10 Atherosclerotic heart disease of native coronary artery without angina pectoris; I48.0 Paroxysmal atrial fibrillation; I73.9 Peripheral vascular disease, unspecified; K21.9 Gastro-esophageal reflux disease without esophagitis; N18.3 Chronic kidney disease, stage 3 (moderate); Z86.79 Personal history of other diseases of the circulatory system; Z87.11 Personal history of peptic ulcer disease; Z99.81 Dependence on supplemental oxygen; Z90.49 Acquired absence of other specified parts of digestive tract; Z88.8 Allergy status to other drugs, medicaments and biological substances; Z68.26 Body mass index [BMI] 26.0-26.9, adult
CPT/HCPCS: 36415; 36600; 71045; 71250; 71275; 74018; 74022; 74177; 80048; 80053; 81001; 82150; 82272; 82803; 83605; 83690; 83735; 83880; 84100; 84145; 85025; 85379; 85610; 85651; 85730; 86140; 87040; 87046; 87070; 87086; 87205; 87324; 87328; 87329; 89055; 93005; 93970; 94640; 96374; 96375; 99285; G0378; J0696; J1940; J2185; J2405; J7060; J7120; J7620; Q0167; Q9967; J2270; J2920